=== PATIENT | male | born 1935 | race Caucasian/White ===

== ENCOUNTER 2019-06-02 00:11 | Inpatient (IN) ==
--- NOTE | 2019-06-02 00:56 | ERNOTE ---
Abdominal HPI - General Chief Complaint: Abdominal Pain Time Seen by Provider: 06/02/19 00:45 Source: patient Exam Limitations: no limitations - Immun/Allergies/Home Medications Immunizatons: IMMUNIZATION HX Immunizations Up to Date Yes History of Influenza Vaccine No Hx Pneumococcal Vaccination No Allergies/Adverse Reactions: Allergies Influenza Virus Vaccines Adverse Reaction (Unknown, Verified 03/14/19 23:58) "Deadly Sick" Home Medications: HOME MEDICATIONS Aspirin [Aspir-Low] 81 mg PO DAILY 03/14/19 [Last Taken Unknown] Carvedilol [Coreg] 12.5 mg PO BID 03/14/19 [Last Taken Unknown] Cetirizine HCl [Zyrtec] 10 mg PO DAILY 03/14/19 [Last Taken Unknown] Ferrous Sulfate [Iron] 325 mg PO DAILY 03/14/19 [Last Taken Unknown] Furosemide [Lasix] 40 mg PO BID 03/14/19 [Last Taken Unknown] Gabapentin 300 mg PO HS 03/14/19 [Last Taken Unknown] Lisinopril [Prinivil] 5 mg PO DAILY 03/14/19 [Last Taken Unknown] Meclizine HCl 25 mg PO TID PRN 03/14/19 [Last Taken Unknown] Montelukast Sodium [Singulair] 10 mg PO HS 03/14/19 [Last Taken Unknown] Pantoprazole Sodium [Protonix] 40 mg PO BID 03/14/19 [Last Taken Unknown] Sennosides/Docusate Sodium [Senna Plus 8.6-50 mg Tablet] 1 ea PO BID 03/14/19 [Last Taken Unknown] Simvastatin 40 mg PO DAILY 03/14/19 [Last Taken Unknown] Tamsulosin HCl 0.4 mg PO HS 03/14/19 [Last Taken Unknown] Warfarin Sodium 6 mg PO HS 03/14/19 [Last Taken Unknown] predniSONE [Prednisone] 2.5 mg PO DAILY 03/14/19 [Last Taken Unknown] Azithromycin [Zithromax] 250 mg PO DAILY #4 tab 05/01/19 [Last Taken Unknown] Cefdinir 300 mg PO BID #18 cap 05/01/19 [Last Taken Unknown] Furosemide [Lasix] 80 mg PO BID PRN 06/02/19 [Last Taken Unknown] Sennosides [Senna] 8.6 mg PO BID 06/02/19 [Last Taken Unknown] - History of Present Illness Narrative: Patient states he fell yesterday scraped his leg on a cabinet. He went to his PCP who dressed it but today it is continuing to bleed. He states he has been fatigued and having black stools lately. Timing: getting worse Quality: moderate Review of Systems - Review of Systems Constitutional: Present: See HPI - COPD, fatigue. Absent: recent illness, fever, chills Respiratory: Present: shortness of breath Cardiology: Absent: chest pain Gastrointestinal/Abdominal: Present: other - dark stools. . Absent: nausea, vomiting Genitourinary: Absent: dysuria Skin: Absent: rash Neurological: Present: dizziness/light-headedness Endocrine: Absent: excessive sweating Medical History (Last Reviewed 06/02/19 @ 00:51 by Andrez Beebe DO) Allergies Anemia Atrial fibrillation BPH (benign prostatic hyperplasia) CHF (congestive heart failure) Diabetes mellitus, type 2 Hyperlipidemia Hypertension Neuropathy Surgical History: Surgical History (Last Reviewed 06/02/19 @ 00:51 by Andrez Beebe DO) H/O aortic valve replacement History of bilateral knee replacement History of tonsillectomy and adenoidectomy Hx of heart artery stent Social History: (Last Reviewed 06/02/19 @ 00:51 by Andrez Beebe DO) Tobacco: Smokeless tobacco user: chewing tobacco Alcohol: alcohol intake: former Substance Use: substance use type: does not use Physical Exam - Physical Exam General Appearance: Present: wd/wn, alert, no apparent distress Head Exam: Present: normal inspection, no evidence of injury Neck: Present: normal inspection, nontender Respiratory: Present: no respiratory distress, no accessory muscle use, lungs clear Cardiovascular/Chest: Present: no murmur, irregularly irregular Gastrointestinal/Abdominal: Present: normal bowel sounds, nontender, nondistended, soft Extremity Exam: Present: normal except - - Large skin tear left lower leg Neurological Exam: Present: alert, oriented, normal mood/affect, no motor/sensory deficits Skin Exam: Present: other - Left lower leg has a large skin tear approximately 8 x 12 cm. There is Vaseline dressing over the lower two thirds there is some recent bleeding/ fresh clots but no active bleeding. Progress - Results and Orders Patient's Lab Results:: I have reviewed the patient's lab results. Results and Orders: Laboratory Tests 06/02/19 06/02/19 06/02/19 01:13 01:13 01:13 WBC 10.3 Hgb 6.5 L* D Hct 20.2 L* D Plt Count 141 L Neutrophils % 76.0 H PT Greater than 100.0 H INR (Anticoag Therapy) Greater than 9.80 H* Sodium 142 Potassium 3.8 D Chloride 106 Carbon Dioxide 25.9 BUN 65 H D Creatinine 2.14 H D Random Glucose 188 H Calcium 8.0 Total Bilirubin 0.3 AST 20 ALT 9 L Alkaline Phosphatase 61 Total Protein 6.1 L Albumin 2.8 L Amylase 55 Lipase 138 Stool Occult Blood 06/02/19 01:51 WBC Hgb Hct Plt Count Neutrophils % PT INR (Anticoag Therapy) Sodium Potassium Chloride Carbon Dioxide BUN Creatinine Random Glucose Calcium Total Bilirubin AST ALT Alkaline Phosphatase Total Protein Albumin Amylase Lipase Stool Occult Blood Positive H - Vital Signs Patient's Vital Signs:: I have reviewed the patient's vital signs. Vital Signs: Vital Signs 06/02/19 00:17 Temperature 36.6 C Pulse Rate 105 H Respiratory Rate 22 H Blood Pressure 122/45 O2 Sat by Pulse Oximetry 100 - X-Ray X-Ray #1 X-Ray: abdomen Interpretation: Interp. by mt X-ray Comments: Specific bowel gas pattern. No free air, no air-fluid levels, no evidence of obstruction. - CT/Ultrasound CT/Ultrasound Narrative: CT abdomen pelvis without IV contrast. 1. Changes of fatty metamorphosis of the liver. 2. Cholelithiasis with multiple small gallstones noted. No prominent gallbladder wall thickening observed. 3. Small hiatal hernia noted. 4. 16 mm left adrenal gland nodule noted. 5. Prominent vascular calcium in the abdominal aorta, renal arteries and superior mesenteric artery. No aneurysm noted. 6. Prominent descending and sigmoid colon diverticulosis without definite diverticulitis. 7. Distended urinary bladder with bladder diverticuli noted. The prostate gland is enlarged measuring 47 x 57 mm. - Progress/Reassessment Chief Complaint: Abdominal Pain Progress Note-Subjective: 06/02/19 05:[address] Caro she agrees with vitamin K and packed red blood cell transfusion and admission. Departure Clinical Impression: Supratherapeutic INR GI bleed Qualifiers: GI bleed type/associated pathology: melena Qualified Code(s): K92.1 - Melena - Departure Disposition: Still a patient Condition: Fair
[2019-06-02 01:24] LABS: Mean Cell Volume 94.8 fl (78-100); Mean Corpuscular Hemoglobin 30.5 pg (27-31); Mean Corpuscular Hgb Conc 32.2 g/dl (32-36); Mean Platelet Volume 11.1 fl (8-11.3); Neutrophil # 7.8 K/mm3 (1.3-6.0); Platelet Count 141 K/mm3 (150-450); Red Blood Count 2.13 M/mm3 (4.7-6.0); Red Cell Distribution Width 16.9 % (11.5-14.0); White Blood Count 10.3 K/mm3 (4.0-10.5)
[2019-06-02 01:30] LABS: Hematocrit 20.2 % (42.0-52.0); Hemoglobin 6.5 gm/dL (13.5-18.0)
[2019-06-02 01:33] LABS: Albumin * 2.8 gm/dl (3.4-5.0); Anion Gap 13.9 mmol/L (6.8-13.8); BUN/Creatinine Ratio 30.4 (9.0-21.6); Bilirubin, Total 0.3 mg/dL (0.0-1.1); Ca. Corrected For Albumin 8.6 mg/dL (8.4-10.2); Carbon Dioxide 25.9 mmol/L (24-32.6); Potassium 3.8 mmol/L (3.4-4.6); Total Protein 6.1 gm/dL (6.2-8.2)
[2019-06-02 02:04] LABS: INR Greater than 9.80 INR (0.92-1.08)
[2019-06-02] MEDS ORDERED: DIATRIZOATE MEGLUMINE, SODIUM 30 ML BTL PO ONE (02:39)
[2019-06-02] MEDS ORDERED: FUROSEMIDE 10 MG/ML VIAL IV ONE (03:40)
[2019-06-02] MEDS ORDERED: ACETAMINOPHEN 325 MG TABLET PO ONE (03:40)
[2019-06-02] MEDS ORDERED: diphenhydrAMINE HCL 50 MG/ML VIAL IV ONE (03:40)
[2019-06-02] MEDS ORDERED: ONDANSETRON HCL/PF 2 MG/ML VIAL IV ONE (03:55)
[2019-06-02] MEDS ORDERED: ACETAMINOPHEN 325 MG TABLET ONE (04:58)
[2019-06-02] MEDS ORDERED: diphenhydrAMINE HCL 50 MG/ML VIAL ONE (04:59)
[2019-06-02] MEDS ORDERED: PHYTONADIONE (VIT K1) 10 MG/ML AMPUL IV ONE (05:36)
[2019-06-02] MEDS ORDERED: PHYTONADIONE (VIT K1) 10 MG/ML AMPUL SC ONE (05:50)
[2019-06-02] MEDS ORDERED: PANTOPRAZOLE SODIUM 80 MG in NORMAL SALINE 100 ML IV ONE (06:06)
[2019-06-02] MEDS ORDERED: FUROSEMIDE 10 MG/ML VIAL ONE (08:31)
[2019-06-02] MEDS: PANTOPRAZOLE SODIUM 40 MG in NORMAL SALINE 100 ML IV SCH ×4 (08:40→23:26)
[2019-06-02] MEDS ORDERED: NORMAL SALINE 1,000 ML IV PRN (08:40)
[2019-06-02] MEDS: SUCRALFATE 1 G TABLET PO SCH ×2 (09:14→20:05)
--- NOTE | 2019-06-02 10:39 | HP ---
Chief Complaint - Chief Complaint Date of Service: 06/02/19 Time of Service: 08:00 Chief Complaint: Upper Gi Bleed History of Present Illness: 84 year old M with PMHX of CHF, A-Fib, HLD, HTN and IDDM Type II presents with SOB and Fatigue for a couple of days. Also c/o he fell and scraped his leg and would not stop bleeding. Evaluate by PCP and dressing applied and blood is seeping through. Also noticed dark tarry stools for a couple of days. Denies CP. Denies any other areas of acute bleed. No history of EGD or Colonoscopy. PCP: Mahad On arrival to ER, he was hemodynamicallly stable. Labs concerning for H/H of 6.5/20.2 and INR > 9. Patient is non compliant on coumadin Admitted to Med/Surg for Upper GI bleed due to supratherapeutic INR. General Surgery consulted. Medical History (Last Reviewed 06/02/19 @ 08:06 by Nasreen Hill RN) Allergies Anemia Atrial fibrillation BPH (benign prostatic hyperplasia) CHF (congestive heart failure) Diabetes mellitus, type 2 Hyperlipidemia Hypertension Neuropathy Surgical History: Surgical History (Last Reviewed 06/02/19 @ 08:06 by Nasreen Hill RN) H/O aortic valve replacement History of bilateral knee replacement History of tonsillectomy and adenoidectomy Hx of heart artery stent Family History: Family History (Last Updated 06/02/19 @ 08:17 by Nasreen Hill RN) Other No pertinent family history Social History: (Last Reviewed 06/02/19 @ 08:06 by Nasreen Hill RN) Tobacco: Smokeless tobacco user: chewing tobacco Alcohol: alcohol intake: former Substance Use: substance use type: does not use Review Of Systems (GEN) - Review of Systems Generalized/Overall Review: Present: Weakness, Fatigue. Absent: Chills, Fever EENTM: Present: No Symptoms Reported Respiratory: Present: Shortness of Breath. Absent: Cough, Orthopnea, Stridor, Wheezing Cardiac: Absent: Chest Pain, Edema, Palpitations, Syncope Abdominal: Present: Abdominal Pain, Melena. Absent: Nausea, Vomiting Genitourinary: Present: No Symptoms Reported Musculoskeletal: Present: No Symptoms Reported Neurological: Present: Weakness Skin: Present: Bruising - left lower eg Endocrine: Present: No Symptoms Reported Immunizations: IMMUNIZATION HX Immunizations Up to Date Yes History of Influenza Vaccine No Hx Pneumococcal Vaccination No Allergies/Adverse Reactions: Allergies Allergy/AdvReac Type Severity Reaction Status Date / Time Influenza Virus Vaccines AdvReac Unknown "Deadly Verified 03/14/19 23:58 Sick" Home Medications: HOME MEDICATIONS Aspirin [Aspir-Low] 81 mg PO DAILY 03/14/19 [Last Taken Unknown] Carvedilol [Coreg] 12.5 mg PO BIDAC 03/14/19 [Last Taken Unknown] Cetirizine HCl [Zyrtec] 10 mg PO DAILY 03/14/19 [Last Taken Unknown] Furosemide [Lasix] 40 mg PO 0900,1200 03/14/19 [Last Taken Unknown] Gabapentin 300 mg PO HS 03/14/19 [Last Taken Unknown] Lisinopril [Prinivil] 5 mg PO DAILY 03/14/19 [Last Taken Unknown] Meclizine HCl 25 mg PO TID PRN 03/14/19 [Last Taken Unknown] Montelukast Sodium [Singulair] 10 mg PO HS 03/14/19 [Last Taken Unknown] Pantoprazole Sodium [Protonix] 40 mg PO Q12H 03/14/19 [Last Taken Unknown] Simvastatin 40 mg PO DAILY 03/14/19 [Last Taken Unknown] Tamsulosin HCl 0.4 mg PO HS 03/14/19 [Last Taken Unknown] Warfarin Sodium 6 mg PO HS 03/14/19 [Last Taken Unknown] predniSONE [Prednisone] 2.5 mg PO DAILY 03/14/19 [Last Taken Unknown] Albuterol Sulfate [Proair Respiclick] 2 puff INHALATION Q6H PRN 06/02/19 [Last Taken Unknown] Arformoterol Tartrate [Brovana] 15 mcg INHALATION BID 06/02/19 [Last Taken Unknown] Budesonide [Pulmicort Respules] 2 ml INHALATION BID 06/02/19 [Last Taken Unknown] Cholecalciferol [Vitamin D] 50,000 unit PO Q7D 06/02/19 [Last Taken Unknown] Ferrous Sulfate [Ferosul] 220 mg PO DAILY 06/02/19 [Last Taken Unknown] Formoterol Fumarate [Perforomist] 20 mcg INHALATION BID 06/02/19 [Last Taken U nknown] Furosemide [Lasix] 80 mg PO BID PRN 06/02/19 [Last Taken Unknown] Gentamicin Sulfate [Gentamicin 0.3% Ophthalmic Solution] 1 drp EACHEYE TID 06/02/19 [Last Taken Unknown] Insulin Glargine,Hum.rec.anlog [Lantus Solostar] 40 unit SQ BID 06/02/19 [Last Taken Unknown] Ipratropium/Albuterol Sulfate [Iprat-Albut 0.5-3(2.5) mg/3 ml] 3 ml INHALATION Q4H 06/02/19 [Last Taken Unknown] Lidocaine [Lidoderm 5%] 1 patch TOPICAL DAILY 06/02/19 [Last Taken Unknown] Mupirocin [Bactroban] 1 appl TOPICAL DAILY 06/02/19 [Last Taken Unknown] Polyethylene Glycol 3350 [Miralax] 17 gm PO DAILY 06/02/19 [Last Taken Unknown] Sennosides [Senna] 8.6 mg PO BID 06/02/19 [Last Taken Unknown] Sennosides/Docusate Sodium [Senna-Docusate Sodium Tablet] 1 ea PO BID 06/02/19 [Last Taken Unknown] Exam - Exam Vital Signs: Vital Signs - Last Taken Temp 36.8 C 06/02/19 09:45 Pulse 98 06/02/19 09:45 Resp 20 06/02/19 09:45 BP 118/38 06/02/19 09:45 Pulse Ox 100 06/02/19 09:45 Constitutional: Present: Alert, Oriented x3, Cooperative, No distress ENT Exam: Present: hard of hearing Eye Exam: bilateral eye: normal inspection, PERRL, EOMI Neck: Present: non-tender, full range of motion, supple Back Exam: Present: normal inspection Respiratory: Present: chest non-tender, lungs clear, normal breath sounds, no respiratory distress, no accessory muscle use, No rales, No wheezing Cardiovascular/Chest: Present: normal peripheral pulses, regular rate, rhythm, no chest tenderness, no edema, no gallop, no JVD, systolic murmur Peripheral Pulses: dorsalis-pedis (R): 2+, dorsalis-pedis (L): 2+, radial (R): 2+, radial (L): 2+ Abdomen: Present: Normal bowel sounds, soft, nontender, other - hepatomegaly suspected, distended /Rectal: Present: Exam deferred Extremity: Present: normal range of motion, non-tender, normal inspection, no pedal edema - left leg due to opensuperficial wound, no calf tenderness, normal capillary refill, leg pain Skin Exam: Present: normal color, warm/dry Lymphatic: Present: no adenopathy Neurologic: Present: alert, oriented x 3 Appearance: Present: appropriate appearance, impaired recent memory - suspect Eye contact: Present: cooperative Thoughts: Present: other - unable to evaluate Diagnostic Studies: Abnormal Lab Results 06/02/19 06/02/19 06/02/19 Range/Units 01:13 01:13 01:13 RBC 2.13 L (4.7-6.0) M/mm3 Hgb 6.5 L* D (13.5-18.0) gm/dL Hct 20.2 L* D (42.0-52.0) % RDW 16.9 H (11.5-14.0) % Plt Count 141 L (150-450) K/mm3 Immature Gran % (Auto) 0.60 H (0.001-0.429) % Immature Gran # (Auto) 0.06 H (0.000-0.0310) K/mm3 Neutrophils % 76.0 H (42-75.0) % Lymphocytes % 14.9 L (20-51) % Neutrophils # 7.8 H (1.3-6.0) K/mm3 PT Greater than 100.0 H (9.1-10.7) Seconds INR (Anticoag Therapy) Greater than 9.80 H* (0.92-1.08) INR Plasma Sodium 143 H (130-142) mmol/L Anion Gap 13.9 H (6.8-13.8) mmol/L BUN 65 H D (6-23) mg/dL Creatinine 2.14 H D (0.4-1.4) mg/dL Est GFR (Non-Af Amer) 31 L D (60-130) mL/min BUN/Creatinine Ratio 30.4 H (9.0-21.6) Random Glucose 188 H (70-110) mg/dL ALT 9 L (19-67) U/L Total Protein 6.1 L (6.2-8.2) gm/dL Albumin 2.8 L (3.4-5.0) gm/dl Stool Occult Blood Crossmatch 06/02/19 06/02/19 Range/Units 01:13 01:51 RBC (4.7-6.0) M/mm3 Hgb (13.5-18.0) gm/dL Hct (42.0-52.0) % RDW (11.5-14.0) % Plt Count (150-450) K/mm3 Immature Gran % (Auto) (0.001-0.429) % Immature Gran # (Auto) (0.000-0.0310) K/mm3 Neutrophils % (42-75.0) % Lymphocytes % (20-51) % Neutrophils # (1.3-6.0) K/mm3 PT (9.1-10.7) Seconds INR (Anticoag Therapy) (0.92-1.08) INR Plasma Sodium (130-142) mmol/L Anion Gap (6.8-13.8) mmol/L BUN (6-23) mg/dL Creatinine (0.4-1.4) mg/dL Est GFR (Non-Af Amer) (60-130) mL/min BUN/Creatinine Ratio (9.0-21.6) Random Glucose (70-110) mg/dL ALT (19-67) U/L Total Protein (6.2-8.2) gm/dL Albumin (3.4-5.0) gm/dl Stool Occult Blood Positive H Crossmatch See Detail Laboratory Results WBC 10.3 K/mm3 (4.0-10.5) 06/02/19 01:13 RBC 2.13 M/mm3 (4.7-6.0) L 06/02/19 01:13 Hgb 6.5 gm/dL (13.5-18.0) L* D 06/02/19 01:13 Hct 20.2 % (42.0-52.0) L* D 06/02/19 01:13 MCV 94.8 fl (78-100) 06/02/19 01:13 MCH 30.5 pg (27-31) 06/02/19 01:13 MCHC 32.2 g/dl (32-36) 06/02/19 01:13 RDW 16.9 % (11.5-14.0) H 06/02/19 01:13 Plt Count 141 K/mm3 (150-450) L 06/02/19 01:13 MPV 11.1 fl (8-11.3) 06/02/19 01:13 Immature Gran % (Auto) 0.60 % (0.001-0.429) H 06/02/19 01:13 Immature Gran # (Auto) 0.06 K/mm3 (0.000-0.0310) H 06/02/19 01:13 Neutrophils % 76.0 % (42-75.0) H 06/02/19 01:13 Lymphocytes % 14.9 % (20-51) L 06/02/19 01:13 Monocytes % 7.6 % (0.0-9) 06/02/19 01:13 Eosinophils % 0.5 % (0.0-3.0) 06/02/19 01:13 Basophils % 0.4 % (0.0-1.0) 06/02/19 01:13 Nucleated RBC % 0.0 k/mm3 (0-1) 06/02/19 01:13 Neutrophils # 7.8 K/mm3 (1.3-6.0) H 06/02/19 01:13 Lymphocytes # 1.53 k/mm3 (1.5-3.5) 06/02/19 01:13 Monocytes # 0.8 k/mm3 (0.0-1.0) 06/02/19 01:13 Eosinophils # 0.1 k/mm3 (0.0-0.7) 06/02/19 01:13 Absolute Basophils 0.0 k/mm3 (0.0-0.1) 06/02/19 01:13 PT Greater than 100.0 Seconds (9.1-10.7) H 06/02/19 01:13 INR (Anticoag Therapy) Greater than 9.80 INR (0.92-1.08) H* 06/02/19 01:13 Sodium 142 mmol/L (132-142) 06/02/19 01:13 Plasma Sodium 143 mmol/L (130-142) H 06/02/19 01:13 Potassium 3.8 mmol/L (3.4-4.6) D 06/02/19 01:13 Chloride 106 mmol/L (97-106) 06/02/19 01:13 Carbon Dioxide 25.9 mmol/L (24-32.6) 06/02/19 01:13 Anion Gap 13.9 mmol/L (6.8-13.8) H 06/02/19 01:13 BUN 65 mg/dL (6-23) H D 06/02/19 01:13 Creatinine 2.14 mg/dL (0.4-1.4) H D 06/02/19 01:13 Est GFR (Non-Af Amer) 31 mL/min (60-130) L D 06/02/19 01:13 BUN/Creatinine Ratio 30.4 (9.0-21.6) H 06/02/19 01:13 Random Glucose 188 mg/dL (70-110) H 06/02/19 01:13 Calcium 8.0 mg/dL (7.9-10.9) 06/02/19 01:13 Calcium Adj for Albumin 8.6 mg/dL (8.4-10.2) 06/02/19 01:13 Total Bilirubin 0.3 mg/dL (0.0-1.1) 06/02/19 01:13 AST 20 U/L (0-48) 06/02/19 01:13 ALT 9 U/L (19-67) L 06/02/19 01:13 Alkaline Phosphatase 61 U/L (50-170) 06/02/19 01:13 Total Protein 6.1 gm/dL (6.2-8.2) L 06/02/19 01:13 Albumin 2.8 gm/dl (3.4-5.0) L 06/02/19 01:13 Amylase 55 U/L (25-115) 06/02/19 01:13 Lipase 138 U/L (73-393) 06/02/19 01:13 Stool Occult Blood Positive H 06/02/19 01:51 Blood Type A Negative 06/02/19 01:13 Antibody Screen Negative 06/02/19 01:13 Crossmatch See Detail 06/02/19 01:13 Assessment/Plan - Narrative Narrative: Assessment/Plan 84 year old M admittted for symptomatic anemia due to Upper GI Bleed and Supratherapeutic INR Symptomatic Anemia due to Upper GI Bleed - TYPE and Screen - Transfuse will hgb goal > 9 and asymptomatic - Lasix 10 mg IV to be administered between each dose - NPO - Gentle hydration due to hx of CHF - Protonix 80 MG IV followed by 40 mg IV daily - Carafate 1 gm BID - General surgery consulted:Dr. Goldberg, appreciate recommednations. Supratherapeutic INR - Vit K IM 5 MG and 5MG SC Administered on arrival - Repeat PT/INR > 9 - Continue to monitor - Lolly AngelMD on board, appreciate recommendations Atrial fibrillation with RVR - Appreciated on EKG - Currently in NSR and hemodynamically stable - Cardiac Panel, BNP and EKG pending Ulcer of left lower extremity, limited to breakdown of skin - Wound Center Consulted. Appreciate recommendations - Wound care as per their recommendations and RN's recommendations - Tight glycemic control once patient resumes diet - Will obtain A1C to evaluate severity of his diabetes FEN: NPO, NS @ 75 ML/HR DVT PPX: SCDS CODE STATUS: FULL CODE DISPOSITION: - Continue to transfuse till target hgb goal - Monitor for transfusion reactions and pulmonary edema - f/u on cardiac work up - f/u on recommendations from General Surgery and Wound Center - Auto Detailer onboard to assist with medical necessities upon discharge - Needs patient education on Coumadin - Assessment/Plan (1) GI bleed Problem: Acute Qualifiers: GI bleed type/associated pathology: melena Qualified Code(s): K92.1 - Melena (2) Supratherapeutic INR Problem: Acute (3) Symptomatic anemia Problem: Acute (4) Atrial fibrillation with RVR Problem: Acute (5) Ulcer of left lower extremity, limited to breakdown of skin Problem: Acute
[2019-06-02 11:06] LABS: Urine Bilirubin Negative (NEGATIVE); Urine Blood Negative /ul (NEGATIVE); Urine Ketone Negative (NEGATIVE); Urine Nitrite Negative (NEGATIVE); Urine Protein Negative (NEGATIVE); Urine Specific Gravity 1.015 SP.GR. (1.005-1.030); Urine Urobilinogen Normal (NORMAL)
[2019-06-02 11:20] LABS: Urine Amorphous Sediment Few - 1+ (NONE-FEW); Urine Appearance Clear (CLEAR); Urine Bacteria None Seen; Urine Color Yellow; Urine RBC None Seen /hpf (0-5); Urine WBC 0-5 /hpf (0-5)
[2019-06-02 13:16] LABS: Mean Cell Volume 91.4 fl (78-100); Mean Corpuscular Hemoglobin 30.4 pg (27-31); Mean Corpuscular Hgb Conc 33.2 g/dl (32-36); Mean Platelet Volume 11.9 fl (8-11.3); Neutrophil # 7.6 K/mm3 (1.3-6.0); Neutrophil % 72.7 % (42-75.0); Platelet Count 135 K/mm3 (150-450); Red Blood Count 2.57 M/mm3 (4.7-6.0); Red Cell Distribution Width 16.7 % (11.5-14.0); White Blood Count 10.4 K/mm3 (4.0-10.5)
[2019-06-02 13:19] LABS: Hemoglobin 7.8 gm/dL (13.5-18.0)
[2019-06-02 13:20] LABS: Hematocrit 23.5 % (42.0-52.0)
[2019-06-02 13:30] LABS: Albumin * 2.6 gm/dl (3.4-5.0); Anion Gap 13.5 mmol/L (6.8-13.8); BUN/Creatinine Ratio 37.6 (9.0-21.6); Bilirubin, Total 0.4 mg/dL (0.0-1.1); Ca. Corrected For Albumin 8.6 mg/dL (8.4-10.2); Calcium * 7.8 mg/dL (7.9-10.9); Carbon Dioxide 26.5 mmol/L (24-32.6); Total Protein 5.6 gm/dL (6.2-8.2)
[2019-06-02 13:46] LABS: INR Greater than 9.80 INR (0.92-1.08); Partial Thrombolplastin Time 52.3 Seconds (24-32)
[2019-06-02] MEDS ORDERED: ACETAMINOPHEN 325 MG TABLET PO PRN (13:50)
[2019-06-02] MEDS ORDERED: FUROSEMIDE 10 MG/ML VIAL IV SCH ×2 (13:53→18:00)
[2019-06-02] MEDS ORDERED: diphenhydrAMINE HCL 50 MG/ML VIAL IV SCH (13:53)
[2019-06-02 14:25] LABS: CKMB 1.5 ng/mL (0.0-9.0); Troponin I 0.026 ng/mL (0.00-0.10)
--- NOTE | 2019-06-02 15:55 | CONS ---
[facility] - General Date of Service: 06/02/19 Source: patient Exam Limitations: other - Patient is hard of hearing - History of Present Illness Timing/Duration: unsure Allergies/Adverse Reactions: Allergies Influenza Virus Vaccines Adverse Reaction (Unknown, Verified 03/14/19 23:58) "Deadly Sick" Home Medications: Home Medications Medication Instructions Recorded Last Taken Aspirin [Aspir-Low] 81 mg PO DAILY 03/14/19 Unknown Carvedilol [Coreg] 12.5 mg PO BIDAC 03/14/19 Unknown Cetirizine HCl [Zyrtec] 10 mg PO DAILY 03/14/19 Unknown Furosemide [Lasix] 40 mg PO 0900,1200 03/14/19 Unknown Gabapentin 300 mg PO HS 03/14/19 Unknown Lisinopril [Prinivil] 5 mg PO DAILY 03/14/19 Unknown Meclizine HCl 25 mg PO TID PRN 03/14/19 Unknown Montelukast Sodium [Singulair] 10 mg PO HS 03/14/19 Unknown Pantoprazole Sodium [Protonix] 40 mg PO Q12H 03/14/19 Unknown Simvastatin 40 mg PO DAILY 03/14/19 Unknown Tamsulosin HCl 0.4 mg PO HS 03/14/19 Unknown Warfarin Sodium 6 mg PO HS 03/14/19 Unknown predniSONE [Prednisone] 2.5 mg PO DAILY 03/14/19 Unknown Albuterol Sulfate [Proair 2 puff INHALATION Q6H PRN 06/02/19 Unknown Respiclick] Arformoterol Tartrate [Brovana] 15 mcg INHALATION BID 06/02/19 Unknown Budesonide [Pulmicort Respules] 2 ml INHALATION BID 06/02/19 Unknown Cholecalciferol [Vitamin D] 50,000 unit PO Q7D 06/02/19 Unknown Ferrous Sulfate [Ferosul] 220 mg PO DAILY 06/02/19 Unknown Formoterol Fumarate [Perforomist] 20 mcg INHALATION BID 06/02/19 Unknown Furosemide [Lasix] 80 mg PO BID PRN 06/02/19 Unknown Gentamicin Sulfate [Gentamicin 1 drp EACHEYE TID 06/02/19 Unknown 0.3% Ophthalmic Solution] Insulin Glargine,Hum.rec.anlog 40 unit SQ BID 06/02/19 Unknown [Lantus Solostar] Ipratropium/Albuterol Sulfate 3 ml INHALATION Q4H 06/02/19 Unknown [Iprat-Albut 0.5-3(2.5) mg/3 ml] Lidocaine [Lidoderm 5%] 1 patch TOPICAL DAILY 06/02/19 Unknown Mupirocin [Bactroban] 1 appl TOPICAL DAILY 06/02/19 Unknown Polyethylene Glycol 3350 [Miralax] 17 gm PO DAILY 06/02/19 Unknown Sennosides [Senna] 8.6 mg PO BID 06/02/19 Unknown Sennosides/Docusate Sodium 1 ea PO BID 06/02/19 Unknown [Senna-Docusate Sodium Tablet] Procedures Endoscopic polypectomy of large intestine (01/13/08) Medications - Medications Current Medications: Current Medications Pantoprazole Sodium 40 mg/ (Sodium Chloride) 100 mls @ 20 mls/hr IV Q5H [facility] Stop: 06/03/19 07:14 Last Admin: 06/02/19 13:42 Dose: 20 mls/hr Documented by: Sodium Chloride (Sodium Chloride 0.9%) 1,000 mls @ 75 mls/hr IV .[id number] PRN PRN Reason: HYDRATION Stop: 07/02/19 08:41 Last Admin: 06/02/19 11:56 Dose: 75 mls/hr Documented by: Sucralfate (Carafate) 1 g PO BID [facility] Stop: 07/02/19 09:01 Last Admin: 06/02/19 09:14 Dose: 1 g Documented by: Review of Systems - Review of Systems Generalized/Overall Review: Absent: Chills, Fever EENTM: Absent: Nose Congestion Respiratory: Absent: Cough Cardiac: Present: Edema. Absent: Chest Pain Abdominal: Absent: Nausea Musculoskeletal: Absent: Joint Pain Skin: Present: Lesions Physical Examination - Exam Narrative: Patient is an 84-year-old male, recently admitted to the hospital regarding a GI bleed. He states he also fell yesterday scraping his leg. History is difficult, as the patient is hard of hearing and does not answer questions. Nursing notes state that he was recently admitted to [place], in January 2019, for similar GI bleed, and he was evaluated with his primary care provider, Dr. Tobin, recently regarding the wound. The patient let me to believe that the ulcer had been there for some time, and not as a result of her recent fall. However as stated above, he is hard of hearing and the conversation was difficult. His medical history includes anemia, BPH, congestive heart failure, diabetes, hyperlipidemia, hypertension and neuropathy. Vital Signs: Vital Signs - Last Taken Temp 36.8 C 06/02/19 14:22 Pulse 99 06/02/19 14:22 Resp 20 06/02/19 14:22 BP 133/35 06/02/19 14:22 Pulse Ox 100 06/02/19 14:22 O2 Oxygen Delivery Method Nasal Cannula Constitutional: Present: Alert, Cooperative, Obese ENT Exam: Present: hard of hearing Extremity: Present: leg pain, pedal edema Skin Exam: Present: warm/dry, other - The ulcer on the left lateral lower leg measures approximately 10 cm x 6 cm x 0.1 cm. Small amount of serous sanguinous drainage is noted. No erythema. Large amount of red granulation tissue is present. No necrosis. There is an area on the right medial ankle that is reddened, with no open wound or drainage noted. Eye contact: Present: normal speech - Results and Findings: Lab/Microbiology results last 24 hrs: Abnormal/Pending Laboratory Last 24 HRS 06/02/19 06/02/19 06/02/19 13:10 13:10 13:10 RBC 2.57 L Hgb 7.8 L* Hct 23.5 L* RDW 16.7 H Plt Count 135 L MPV 11.9 H Immature Gran % (Auto) 0.70 H Immature Gran # (Auto) 0.07 H Neutrophils % Lymphocytes % 15.8 L Monocytes % 9.8 H Neutrophils # 7.6 H PT Greater than 100.0 H INR (Anticoag Therapy) Greater than 9.80 H* PTT ([place]) 52.3 H D Sodium 144 H Plasma Sodium 145 H Chloride 108 H Anion Gap BUN 68 H Creatinine 1.81 H Est GFR (Non-Af Amer) 38 L D BUN/Creatinine Ratio 37.6 H Random Glucose 161 H Calcium 7.8 L ALT 8 L Alkaline Phosphatase 49 L B-Natriuretic Peptide Total Protein 5.6 L Albumin 2.6 L Stool Occult Blood Crossmatch 06/02/19 06/02/19 06/02/19 12:50 01:51 01:13 RBC Hgb Hct RDW Plt Count MPV Immature Gran % (Auto) Immature Gran # (Auto) Neutrophils % Lymphocytes % Monocytes % Neutrophils # PT INR (Anticoag Therapy) PTT ([place]) Sodium Plasma Sodium Chloride Anion Gap BUN Creatinine Est GFR (Non-Af Amer) BUN/Creatinine Ratio Random Glucose Calcium ALT Alkaline Phosphatase B-Natriuretic Peptide 1320 H Total Protein Albumin Stool Occult Blood Positive H Crossmatch See Detail 06/02/19 06/02/19 06/02/19 01:13 01:13 01:13 RBC 2.13 L Hgb 6.5 L* D Hct 20.2 L* D RDW 16.9 H Plt Count 141 L MPV Immature Gran % (Auto) 0.60 H Immature Gran # (Auto) 0.06 H Neutrophils % 76.0 H Lymphocytes % 14.9 L Monocytes % Neutrophils # 7.8 H PT Greater than 100.0 H INR (Anticoag Therapy) Greater than 9.80 H* PTT (Manny) Sodium Plasma Sodium 143 H Chloride Anion Gap 13.9 H BUN 65 H D Creatinine 2.14 H D Est GFR (Non-Af Amer) 31 L D BUN/Creatinine Ratio 30.4 H Random Glucose 188 H Calcium ALT 9 L Alkaline Phosphatase B-Natriuretic Peptide Total Protein 6.1 L Albumin 2.8 L Stool Occult Blood Crossmatch - Assessments/Findings (1) Ulcer of left lower extremity, limited to breakdown of skin Diagnosis(s): Recommend using Jo, to the open area on the left lower leg. This will facilitate healing, and control for bacteria. The Jo will be covered with gauze and secured with tape. The dressing will be changed every 3 days. The area will be washed thoroughly with soap and water at dressing changes. Also recommend continuing protect the right medial ankle with a Mepilex border. This will be changed daily and as needed. Continue to monitor for signs and symptoms of infection. Problem: Acute
[2019-06-02] MEDS ORDERED: ALBUTEROL SULFATE 2.5 MG/0.5 ML VIAL.NEB IH PRN ×2 (16:22→20:23)
[2019-06-02] MEDS ORDERED: GENTAMICIN SULFATE 50 DROP BTL EACHEYE SCH (17:00)
--- NOTE | 2019-06-02 17:05 | CONS ---
[facility] - General Date of Service: 06/02/19 Source: patient, RN/MD, RN notes reviewed, old records Exam Limitations: other - Patient is very hard of hearing - History of Present Illness Initial Comments: The patient apparently fell at home 2 days ago and sustained an injury to his lower leg. The area was bleeding, he felt weak so he presented to the ER. He was found to have a hemoglobin of 6.5 and a heme positive stool. His INR was greater than 9. He was admitted for further treatment. The patient is very hard of hearing and a very poor historian so information has been gleaned from his records that were faxed from Dr. Tobin's office--- he was admitted to [facility] in [place] in January with an upper GI bleed and had upper and lower endoscopy there. The upper endoscopy revealed a significant hiatal hernia with nonbleeding Man linear ulcers and he had 2 small necrotic ulcers on the lesser curvature and marked solorzano gastritis. He had severe pancolonic diverticulosis and a "diminutive" tubular adenoma in the transverse colon. Timing/Duration: getting worse, changing over time, other - Unsure by his history Severity: moderate Modifying Factors - (Worsens): Reports: movement Modifying Factors - (Improves): Reports: rest Associated Symptoms: other - He reports only occasional heartburn. He denies dysphagia. He denies abdominal pain. He states his bowels move regularly. He has noted black bowel movements Allergies/Adverse Reactions: Allergies Influenza Virus Vaccines Adverse Reaction (Unknown, Verified 03/14/19 23:58) "Deadly Sick" Home Medications: Home Medications Medication Instructions Recorded Last Taken Aspirin [Aspir-Low] 81 mg PO DAILY 03/14/19 Unknown Carvedilol [Coreg] 12.5 mg PO BIDAC 03/14/19 Unknown Cetirizine HCl [Zyrtec] 10 mg PO DAILY 03/14/19 Unknown Furosemide [Lasix] 40 mg PO 0900,1200 03/14/19 Unknown Gabapentin 300 mg PO HS 03/14/19 Unknown Lisinopril [Prinivil] 5 mg PO DAILY 03/14/19 Unknown Meclizine HCl 25 mg PO TID PRN 03/14/19 Unknown Montelukast Sodium [Singulair] 10 mg PO HS 03/14/19 Unknown Pantoprazole Sodium [Protonix] 40 mg PO Q12H 03/14/19 Unknown Simvastatin 40 mg PO DAILY 03/14/19 Unknown Tamsulosin HCl 0.4 mg PO HS 03/14/19 Unknown Warfarin Sodium 6 mg PO HS 03/14/19 Unknown predniSONE [Prednisone] 2.5 mg PO DAILY 03/14/19 Unknown Albuterol Sulfate [Proair 2 puff INHALATION Q6H PRN 06/02/19 Unknown Respiclick] Arformoterol Tartrate [Brovana] 15 mcg INHALATION BID 06/02/19 Unknown Budesonide [Pulmicort Respules] 2 ml INHALATION BID 06/02/19 Unknown Cholecalciferol [Vitamin D] 50,000 unit PO Q7D 06/02/19 Unknown Ferrous Sulfate [Ferosul] 220 mg PO DAILY 06/02/19 Unknown Formoterol Fumarate [Perforomist] 20 mcg INHALATION BID 06/02/19 Unknown Furosemide [Lasix] 80 mg PO BID PRN 06/02/19 Unknown Gentamicin Sulfate [Gentamicin 1 drp EACHEYE TID 06/02/19 Unknown 0.3% Ophthalmic Solution] Insulin Glargine,Hum.rec.anlog 40 unit SQ BID 06/02/19 Unknown [Lantus Solostar] Ipratropium/Albuterol Sulfate 3 ml INHALATION Q4H 06/02/19 Unknown [Iprat-Albut 0.5-3(2.5) mg/3 ml] Lidocaine [Lidoderm 5%] 1 patch TOPICAL DAILY 06/02/19 Unknown Mupirocin [Bactroban] 1 appl TOPICAL DAILY 06/02/19 Unknown Polyethylene Glycol 3350 [Miralax] 17 gm PO DAILY 06/02/19 Unknown Sennosides [Senna] 8.6 mg PO BID 06/02/19 Unknown Sennosides/Docusate Sodium 1 ea PO BID 06/02/19 Unknown [Senna-Docusate Sodium Tablet] Procedures Endoscopic polypectomy of large intestine (01/13/08) Medications - Medications Current Medications: Current Medications Pantoprazole Sodium 40 mg/ (Sodium Chloride) 100 mls @ 20 mls/hr IV Q5H [facility] Stop: 06/03/19 07:14 Last Admin: 06/02/19 13:42 Dose: 20 mls/hr Documented by: Sodium Chloride (Sodium Chloride 0.9%) 1,000 mls @ 50 mls/hr IV .Q20H PRN PRN Reason: HYDRATION Stop: 07/02/19 08:41 Last Infusion: 06/02/19 15:58 Dose: 0 mls/hr Documented by: Sucralfate (Carafate) 1 g PO BID [facility] Stop: 07/02/19 09:01 Last Admin: 06/02/19 09:14 Dose: 1 g Documented by: Review of Systems - Review of Systems Narrative: System review is limited due to very poor hearing and self-admitted bad memory Generalized/Overall Review: Present: Weakness. Absent: Chills, Fever EENTM: Present: No Symptoms Reported Respiratory: Present: Other - He is on chronic O2 at home. Absent: Cough Cardiac: Present: Edema. Absent: Chest Pain Abdominal: Present: Other - Only gets heartburn occasionally. No abdominal pain. Black stools recently Genitourinary: Present: No Symptoms Reported. 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 He is oriented to self and that he is in the hospital but not the date. He cannot answer questions about his hospitalization in [place] in [facility] estef[facility] "too long ago" Vital Signs: Vital Signs - Last Taken Temp 37.0 C 06/02/19 16:14 Pulse 105 H 06/02/19 16:37 Resp 20 06/02/19 16:14 BP 120/46 06/02/19 16:14 Pulse Ox 100 06/02/19 16:14 O2 Oxygen Delivery Method Nasal Cannula Constitutional: Present: Alert, Elderly, Obese ENT Exam: Present: other - Very poor hearing Neck: Present: other - Short thick neck Respiratory: Present: no respiratory distress, other - 02 Cardiovascular/Chest: Present: irregularly irregular Abdomen: Present: other - Very obese but soft and denies abdominal tenderness /Rectal: Present: Exam deferred Extremity: Present: lower extremity edema, other - Dressed wound on the left ankle Skin Exam: Present: pallor Neurologic: Present: electronics tester II-XII nml as tested, normal cerebellar test, no motor/sensory deficits, alert, other - Only oriented to self and "in hospital". Examined in bed, gait not tested Appearance: Present: disheveled, impaired remote memory Eye contact: Present: good eye contact, normal speech, other - Very hard of hearing Thoughts: Present: other - Cannot assess fully - Results and Findings: Lab/Microbiology results last 24 hrs: Abnormal/Pending Laboratory Last 24 HRS 06/02/19 06/02/19 06/02/19 13:10 13:10 13:10 RBC 2.57 L Hgb 7.8 L* Hct 23.5 L* RDW 16.7 H Plt Count 135 L MPV 11.9 H Immature Gran % (Auto) 0.70 H Immature Gran # (Auto) 0.07 H Neutrophils % Lymphocytes % 15.8 L Monocytes % 9.8 H Neutrophils # 7.6 H PT Greater than 100.0 H INR (Anticoag Therapy) Greater than 9.80 H* PTT ([place]) 52.3 H D Sodium 144 H Plasma Sodium 145 H Chloride 108 H Anion Gap BUN 68 H Creatinine 1.81 H Est GFR (Non-Af Amer) 38 L D BUN/Creatinine Ratio 37.6 H Random Glucose 161 H Calcium 7.8 L ALT 8 L Alkaline Phosphatase 49 L B-Natriuretic Peptide Total Protein 5.6 L Albumin 2.6 L Stool Occult Blood Crossmatch 06/02/19 06/02/19 06/02/19 12:50 01:51 01:13 RBC Hgb Hct RDW Plt Count MPV Immature Gran % (Auto) Immature Gran # (Auto) Neutrophils % Lymphocytes % Monocytes % Neutrophils # PT INR (Anticoag Therapy) PTT (Manny) Sodium Plasma Sodium Chloride Anion Gap BUN Creatinine Est GFR (Non-Af Amer) BUN/Creatinine Ratio Random Glucose Calcium ALT Alkaline Phosphatase B-Natriuretic Peptide 1320 H Total Protein Albumin Stool Occult Blood Positive H Crossmatch See Detail 06/02/19 06/02/19 06/02/19 01:13 01:13 01:13 RBC 2.13 L Hgb 6.5 L* D Hct 20.2 L* D RDW 16.9 H Plt Count 141 L MPV Immature Gran % (Auto) 0.60 H Immature Gran # (Auto) 0.06 H Neutrophils % 76.0 H Lymphocytes % 14.9 L Monocytes % Neutrophils # 7.8 H PT Greater than 100.0 H INR (Anticoag Therapy) Greater than 9.80 H* PTT (Manny) Sodium Plasma Sodium 143 H Chloride Anion Gap 13.9 H BUN 65 H D Creatinine 2.14 H D Est GFR (Non-Af Amer) 31 L D BUN/Creatinine Ratio 30.4 H Random Glucose 188 H Calcium ALT 9 L Alkaline Phosphatase B-Natriuretic Peptide Total Protein 6.1 L Albumin 2.8 L Stool Occult Blood Crossmatch - Assessments/Findings (1) GI bleed Diagnosis(s): The records from [place] were reviewed. The gastric biopsies were benign at that time. There is no record of H. pylori testing. The most likely source of bleeding is from the hiatal hernia or stomach aggravated by the markedly prolonged INR. He is hemodynamically stable currently. His hemoglobin was 9 in January and February. Currently with Covidien restrictions, an EGD would involve a general endotracheal anesthetic. The risk of that procedure is probably not warranted in that he had findings that would account for chronic blood loss, and so repeat exam would not likely add any new actionable information. With a colonoscopy in January and black bowel movements the likelihood of a lower GI source is low. Would recommend transfusion to a safe level. Continue treatment with twice daily PPI with addition of Carafate. If there is no record of H. pylori testing previously, a stool antigen for H. pylori could be considered. He has however apparently been on twice daily PPI. This may be an opportunity to reevaluate his need for chronic anticoagulation, the medications used, and the monitoring. Problem: Acute Qualifiers: GI bleed type/associated pathology: melena Qualified Code(s): K92.1 - Melena
[2019-06-02] MEDS: CARVEDILOL 12.5 MG TABLET PO SCH (17:39)
[2019-06-02] MEDS ORDERED: CARVEDILOL 25 MG TABLET PO ONE (17:39)
[2019-06-02] MEDS ORDERED: METHYLPREDNISOLONE SOD SUCC/PF 125 MG/2 ML VIAL IV ONE (19:00)
[2019-06-02] MEDS ORDERED: NON-FORMULARY 1 DOSE DOSE (Arformoterol Tartrate [Brovana] 15 MCG) inhalation SCH (21:00)
[2019-06-02 21:06] LABS: Hematocrit 24.8 % (42.0-52.0)
[2019-06-02 21:25] LABS: Troponin I 0.027 ng/mL (0.00-0.10)
[2019-06-03] MEDS: PANTOPRAZOLE SODIUM 40 MG in NORMAL SALINE 100 ML IV SCH (04:24)
[2019-06-03 06:36] LABS: Mean Cell Volume 91.5 fl (78-100); Mean Corpuscular Hemoglobin 29.1 pg (27-31); Mean Corpuscular Hgb Conc 31.8 g/dl (32-36); Mean Platelet Volume 11.8 fl (8-11.3); Neutrophil # 10.2 K/mm3 (1.3-6.0); Neutrophil % 92.4 % (42-75.0); Platelet Count 132 K/mm3 (150-450); Red Blood Count 2.58 M/mm3 (4.7-6.0); Red Cell Distribution Width 17.5 % (11.5-14.0)
[2019-06-03 06:52] LABS: Albumin * 2.5 gm/dl (3.4-5.0); Anion Gap 13.7 mmol/L (6.8-13.8); BUN/Creatinine Ratio 36.2 (9.0-21.6); Bilirubin, Total 0.6 mg/dL (0.0-1.1); Ca. Corrected For Albumin 8.6 mg/dL (8.4-10.2); Calcium * 7.7 mg/dL (7.9-10.9); Carbon Dioxide 25.9 mmol/L (24-32.6); Potassium 4.6 mmol/L (3.4-4.6); Total Protein 5.6 gm/dL (6.2-8.2)
[2019-06-03 06:56] LABS: Prothrombin Time (Patient) 22.1 Seconds (9.1-10.7)
[2019-06-03 06:58] LABS: INR 2.31 INR (0.92-1.08); Partial Thrombolplastin Time 32.2 Seconds (24-32)
[2019-06-03 07:06] LABS: Hematocrit 23.6 % (42.0-52.0); Hemoglobin 7.5 gm/dL (13.5-18.0)
[2019-06-03] MEDS: ALBUTEROL SULFATE/IPRATROPIUM 3 ML NEBU IH SCH ×5 (07:38→22:18)
[2019-06-03] MEDS: FORMOTEROL FUMARATE 20 MCG/2 ML VIAL IH SCH ×3 (07:38→18:11)
[2019-06-03] MEDS: BUDESONIDE 0.5 MG/2 ML VIAL.NEB IH SCH ×3 (07:38→18:11)
[2019-06-03] MEDS: CARVEDILOL 12.5 MG TABLET PO SCH ×2 (09:26→17:15)
[2019-06-03] MEDS: SUCRALFATE 1 G TABLET PO SCH ×2 (09:26→20:34)
[2019-06-03] MEDS: LIDOCAINE 1 PATCH ADH..PATCH TP SCH (09:26)
[2019-06-03] MEDS ORDERED: LEVOFLOXACIN IN DEXTROSE 5 % 750 MG/150 ML BAG IV SCH (12:30)
[2019-06-03] MEDS ORDERED: CEFEPIME HCL 2 GM in DEXTROSE 5 % IN WATER 100 ML IV SCH ×2 (12:30)
--- NOTE | 2019-06-03 12:52 | PN ---
Subjective - Date and Time Seen Date: 06/03/19 Time: 12:46 Subjective Narrative: Patient is resting on bed and complaining of being cold. States he does not know if he feels better. SOB due to NC fell off. No F/C. No CP. Objective - Review of Systems Generalized/Overall Review: Reports: Weakness, Chills, Fatigue. Denies: Fever, Diaphoresis EENTM: Reports: No Symptoms Reported Respiratory: Reports: Shortness of Breath, Orthopnea. Denies: Cough, Wheezing Cardiac: Denies: Chest Pain, Edema, Palpitations Abdominal: Reports: Melena. Denies: Nausea, Vomiting Genitourinary Symptoms: Reports: No Symptoms Reported Musculoskeletal Complaints: Reports: No Symptoms Reported Neurological: Reports: Weakness Skin: Reports: Bruising Endocrine: Reports: No Symptoms Reported - Vitals Vitals: Last Vital Signs Temp 36.8 C 06/03/19 06:00 Pulse 80 06/03/19 11:05 Resp 20 06/03/19 11:05 BP 143/54 06/03/19 09:26 Pulse Ox 98 06/03/19 10:55 - Abnormal Lab Findings Abnormal Lab Findings: Abnormal Lab Results 06/02/19 06/02/19 06/02/19 Range/Units 01:13 12:50 13:10 WBC (4.0-10.5) K/mm3 RBC 2.57 L (4.7-6.0) M/mm3 Hgb 7.8 L* (13.5-18.0) gm/dL Hct 23.5 L* (42.0-52.0) % MCHC (32-36) g/dl RDW 16.7 H (11.5-14.0) % Plt Count 135 L (150-450) K/mm3 MPV 11.9 H (8-11.3) fl Immature Gran % (Auto) 0.70 H (0.001-0.429) % Immature Gran # (Auto) 0.07 H (0.000-0.0310) K/mm3 Neutrophils % (42-75.0) % Lymphocytes % 15.8 L (20-51) % Monocytes % 9.8 H (0.0-9) % Neutrophils # 7.6 H (1.3-6.0) K/mm3 Lymphocytes # (1.5-3.5) k/mm3 PT (9.1-10.7) Seconds INR (Anticoag Therapy) (0.92-1.08) INR PTT ([place]) (24-32) Seconds Sodium (132-142) mmol/L Plasma Sodium (130-142) mmol/L Chloride (97-106) mmol/L BUN (6-23) mg/dL Creatinine (0.4-1.4) mg/dL Est GFR (Non-Af Amer) (60-130) mL/min BUN/Creatinine Ratio (9.0-21.6) Random Glucose (70-110) mg/dL Calcium (7.9-10.9) mg/dL ALT (19-67) U/L Alkaline Phosphatase (50-170) U/L B-Natriuretic Peptide 1320 H (5-650) pg/mL Total Protein (6.2-8.2) gm/dL Albumin (3.4-5.0) gm/dl Crossmatch See Detail 06/02/19 06/02/19 06/02/19 Range/Units 13:10 13:10 20:55 WBC (4.0-10.5) K/mm3 RBC (4.7-6.0) M/mm3 Hgb 8.0 L (13.5-18.0) gm/dL Hct 24.8 L (42.0-52.0) % MCHC (32-36) g/dl RDW (11.5-14.0) % Plt Count (150-450) K/mm3 MPV (8-11.3) fl Immature Gran % (Auto) (0.001-0.429) % Immature Gran # (Auto) (0.000-0.0310) K/mm3 Neutrophils % (42-75.0) % Lymphocytes % (20-51) % Monocytes % (0.0-9) % Neutrophils # (1.3-6.0) K/mm3 Lymphocytes # (1.5-3.5) k/mm3 PT Greater than 100.0 H (9.1-10.7) Seconds INR (Anticoag Therapy) Greater than 9.80 H* (0.92-1.08) INR PTT (Manny) 52.3 H D (24-32) Seconds Sodium 144 H (132-142) mmol/L Plasma Sodium 145 H (130-142) mmol/L Chloride 108 H (97-106) mmol/L BUN 68 H (6-23) mg/dL Creatinine 1.81 H (0.4-1.4) mg/dL Est GFR (Non-Af Amer) 38 L D (60-130) mL/min BUN/Creatinine Ratio 37.6 H (9.0-21.6) Random Glucose 161 H (70-110) mg/dL Calcium 7.8 L (7.9-10.9) mg/dL ALT 8 L (19-67) U/L Alkaline Phosphatase 49 L (50-170) U/L B-Natriuretic Peptide (5-650) pg/mL Total Protein 5.6 L (6.2-8.2) gm/dL Albumin 2.6 L (3.4-5.0) gm/dl Crossmatch 06/03/19 06/03/19 06/03/19 Range/Units 06:00 06:00 06:00 WBC 11.0 H (4.0-10.5) K/mm3 RBC 2.58 L (4.7-6.0) M/mm3 Hgb 7.5 L* (13.5-18.0) gm/dL Hct 23.6 L* (42.0-52.0) % MCHC 31.8 L (32-36) g/dl RDW 17.5 H (11.5-14.0) % Plt Count 132 L (150-450) K/mm3 MPV 11.8 H (8-11.3) fl Immature Gran % (Auto) 1.20 H (0.001-0.429) % Immature Gran # (Auto) 0.13 H (0.000-0.0310) K/mm3 Neutrophils % 92.4 H (42-75.0) % Lymphocytes % 5.0 L (20-51) % Monocytes % (0.0-9) % Neutrophils # 10.2 H (1.3-6.0) K/mm3 Lymphocytes # 0.55 L (1.5-3.5) k/mm3 PT 22.1 H (9.1-10.7) Seconds INR (Anticoag Therapy) 2.31 H (0.92-1.08) INR PTT (Manny) 32.2 H D (24-32) Seconds Sodium 143 H (132-142) mmol/L Plasma Sodium 146 H (130-142) mmol/L Chloride 108 H (97-106) mmol/L BUN 71 H (6-23) mg/dL Creatinine 1.96 H (0.4-1.4) mg/dL Est GFR (Non-Af Amer) 35 L (60-130) mL/min BUN/Creatinine Ratio 36.2 H (9.0-21.6) Random Glucose 267 H D (70-110) mg/dL Calcium 7.7 L (7.9-10.9) mg/dL ALT 11 L (19-67) U/L Alkaline Phosphatase (50-170) U/L B-Natriuretic Peptide (5-650) pg/mL Total Protein 5.6 L (6.2-8.2) gm/dL Albumin 2.5 L (3.4-5.0) gm/dl Crossmatch - EKG/Xray Findings EKG: supravent. tachycardia, atrial fibrillation EKG read: Reviewed by me XRAY: chest Interpretation: Reviewed by me - Exam Constitutional: Present: Alert, Oriented x3, Cooperative, No distress ENT Exam: Present: hard of hearing Neck: Present: non-tender, full range of motion, supple Respiratory: Present: chest non-tender, crackles - diffuse Cardiovascular/Chest: Present: normal peripheral pulses, regular rate, rhythm, no chest tenderness, JVD, diastolic murmur. Absent: edema Abdomen: Present: Normal bowel sounds, soft, other - hepatomegaly /Rectal: Present: Exam deferred Extremity: Present: normal range of motion, inflammation, other - wound of left leg. Absent: lower extremity edema Skin Exam: Present: normal color, warm/dry Neurologic: Present: alert, oriented x 3 Appearance: Present: appropriate appearance Eye contact: Present: cooperative Thoughts: Present: normal thought pattern Assessment/Plan Plan Narrative: Assessment/Plan 84 year old M admittted for symptomatic anemia due to Upper GI Bleed and Supratherapeutic INR MET SIRS CRITERIA - STAT CBC, CMP, LACTIC, CRP, Procalcitonin, Blood,Sputum and Urine Cultures, BNP - Concern for possible CAP due to possible infitrate on single view CXR however not appreciated on 2 view CXR TACO suspected - Concerned for transfusion reaction - Consulted Hematology at [facility] Dr. Lopez MD, advised most likely TACO versus TRALI and sepsis workup will rule out Transfusion Associated Sepsis. Also advised with patient with underlying conditions its comon to have infiltrates on CXR. - Recommend to obtain hemolysis panel, Hold further transfusion and continue current supportive management, monitor labs and diurese. - Not fluid resuscitated and no antibiotics administered Symptomatic Anemia due to Upper GI Bleed - BUN trending upward, and hgb dropping despite therapeutic INR. - Hgb target > 9. - Concern for TACO, will diurese and resume transfusion once patient is less fluid overloaded - Protonix 80 MG IV followed by 40 mg IV daily - Carafate 1 gm BID - Dr. Goldberg on board Asymptomatic Hypernatremia - gentle hydration with D51/2NS @ 75 ml Acute Kidney Injury - Continue to monitor Supratherapeutic INR - Resolved - therapeutic range 2-3 - Hold Coumadin - Lolly AngelMD on board, appreciate recommendations Ulcer of left lower extremity, limited to breakdown of skin - Wound Center Consulted. Appreciate recommendations - Wound care as per their recommendations and RN's recommendations - Tight glycemic control once patient resumes diet - Will obtain A1C to evaluate severity of his diabetes FEN: NPO, D51/2NS @ 75 ML/HR DVT PPX: SCDS CODE STATUS: FULL CODE DISPOSITION: Continue to monitor, diurese, hold transfusions - Problems/Diagnosis (1) TACO (transfusion associated circulatory overload) Problem: Acute (2) GI bleed Problem: Acute Qualifiers: GI bleed type/associated pathology: melena Qualified Code(s): K92.1 - Melena (3) Symptomatic anemia Problem: Acute (4) Acute kidney failure Problem: Acute Qualifiers: Acute renal failure type: unspecified Qualified Code(s): N17.9 - Acute kidney failure, unspecified (5) Acute hypernatremia Problem: Acute (6) Ulcer of left lower extremity, limited to breakdown of skin Problem: Acute (7) Supratherapeutic INR Problem: Resolved (8) Atrial fibrillation with RVR Problem: Resolved
[2019-06-03 13:09] LABS: Mean Cell Volume 91.7 fl (78-100); Mean Corpuscular Hemoglobin 29.6 pg (27-31); Mean Corpuscular Hgb Conc 32.3 g/dl (32-36); Mean Platelet Volume 11.5 fl (8-11.3); Neutrophil # 9.2 K/mm3 (1.3-6.0); Neutrophil % 90.7 % (42-75.0); Platelet Count 128 K/mm3 (150-450); Red Cell Distribution Width 17.8 % (11.5-14.0); White Blood Count 10.1 K/mm3 (4.0-10.5)
[2019-06-03 13:15] LABS: Hemoglobin 7.1 gm/dL (13.5-18.0)
[2019-06-03 13:35] LABS: Albumin * 2.5 gm/dl (3.4-5.0); Anion Gap 11.4 mmol/L (6.8-13.8); BUN/Creatinine Ratio 40.9 (9.0-21.6); Bilirubin, Total 0.6 mg/dL (0.0-1.1); CRP 2.2 mg/dL (0.0-0.9); Ca. Corrected For Albumin 8.8 mg/dL (8.4-10.2); Calcium * 7.9 mg/dL (7.9-10.9); Carbon Dioxide 27.3 mmol/L (24-32.6); Potassium 4.7 mmol/L (3.4-4.6); Total Protein 5.5 gm/dL (6.2-8.2)
[2019-06-03 13:56] LABS: Urine Appearance Clear (CLEAR); Urine Bilirubin Negative (NEGATIVE); Urine Blood Negative /ul (NEGATIVE); Urine Color Yellow; Urine Ketone Negative (NEGATIVE); Urine Nitrite Negative (NEGATIVE); Urine Protein Negative (NEGATIVE); Urine Specific Gravity 1.015 SP.GR. (1.005-1.030); Urine Urobilinogen Normal (NORMAL); Urine pH 5.5 pH (5.0-7.0)
[2019-06-03 13:57] LABS: Urine Amorphous Sediment Few - 1+ (NONE-FEW); Urine Bacteria 1+; Urine RBC None Seen /hpf (0-5); Urine WBC 0-5 /hpf (0-5)
[2019-06-03] MEDS: DEXTROSE 5%-0.5 NORMAL SALINE 1,000 ML IV PRN (14:03)
[2019-06-03] MEDS: FUROSEMIDE 10 MG/ML VIAL IV SCH (14:03)
[2019-06-03 16:27] LABS: Albumin * 2.6 gm/dl (3.4-5.0); Anion Gap 10.9 mmol/L (6.8-13.8); BUN/Creatinine Ratio 39.5 (9.0-21.6); Bilirubin, Total 0.5 mg/dL (0.0-1.1); Ca. Corrected For Albumin 8.8 mg/dL (8.4-10.2); Carbon Dioxide 27.7 mmol/L (24-32.6); Potassium 4.6 mmol/L (3.4-4.6); Total Protein 5.8 gm/dL (6.2-8.2)
[2019-06-03 16:33] LABS: Hemoglobin 7.2 gm/dL (13.5-18.0)
[2019-06-03 16:34] LABS: Hematocrit 22.6 % (42.0-52.0)
[2019-06-03] MEDS: INSULIN LISPRO 100 UNITS/ML VIAL SC SCH ×2 (17:51→20:33)
[2019-06-03] MEDS ORDERED: FUROSEMIDE 10 MG/ML VIAL IV ONE (21:00)
[2019-06-04] MEDS: ALBUTEROL SULFATE/IPRATROPIUM 3 ML NEBU IH SCH ×6 (02:10→22:13)
[2019-06-04] MEDS ORDERED: FUROSEMIDE 10 MG/ML VIAL IV ONE ×3 (03:21→12:57)
[2019-06-04] MEDS: DEXTROSE 5%-0.5 NORMAL SALINE 1,000 ML IV PRN (03:27)
[2019-06-04] MEDS: PANTOPRAZOLE SODIUM 40 MG in NORMAL SALINE 100 ML IV SCH (04:24)
[2019-06-04 05:33] LABS: Mean Cell Volume 92.4 fl (78-100); Mean Corpuscular Hemoglobin 29.5 pg (27-31); Mean Corpuscular Hgb Conc 31.9 g/dl (32-36); Mean Platelet Volume 11.3 fl (8-11.3); Neutrophil # 9.8 K/mm3 (1.3-6.0); Neutrophil % 87.6 % (42-75.0); Platelet Count 139 K/mm3 (150-450); Red Blood Count 2.24 M/mm3 (4.7-6.0); Red Cell Distribution Width 17.7 % (11.5-14.0); White Blood Count 11.2 K/mm3 (4.0-10.5)
[2019-06-04 05:38] LABS: Prothrombin Time (Patient) 12.9 Seconds (9.1-10.7)
[2019-06-04 05:43] LABS: INR 1.32 INR (0.92-1.08)
[2019-06-04 05:49] LABS: Hematocrit 20.7 % (42.0-52.0); Hemoglobin 6.6 gm/dL (13.5-18.0)
[2019-06-04] MEDS: FORMOTEROL FUMARATE 20 MCG/2 ML VIAL IH SCH ×2 (06:03→18:03)
[2019-06-04] MEDS: BUDESONIDE 0.5 MG/2 ML VIAL.NEB IH SCH ×2 (06:03→18:03)
[2019-06-04 06:06] LABS: Albumin * 2.6 gm/dl (3.4-5.0); Anion Gap 12.7 mmol/L (6.8-13.8); BUN/Creatinine Ratio 40.4 (9.0-21.6); Bilirubin, Total 0.5 mg/dL (0.0-1.1); Ca. Corrected For Albumin 8.7 mg/dL (8.4-10.2); Calcium * 7.9 mg/dL (7.9-10.9); Carbon Dioxide 26.6 mmol/L (24-32.6); Potassium 4.3 mmol/L (3.4-4.6); Total Protein 5.6 gm/dL (6.2-8.2)
[2019-06-04] MEDS: CARVEDILOL 12.5 MG TABLET PO SCH ×2 (07:33→17:06)
[2019-06-04] MEDS: INSULIN LISPRO 100 UNITS/ML VIAL SC SCH ×4 (07:34→21:28)
[2019-06-04] MEDS: FUROSEMIDE 10 MG/ML VIAL IV SCH (09:00)
[2019-06-04] MEDS: predniSONE 20 MG TABLET PO SCH (09:01)
[2019-06-04] MEDS: SUCRALFATE 1 G TABLET PO SCH ×2 (09:01→21:16)
[2019-06-04] MEDS: LIDOCAINE 1 PATCH ADH..PATCH TP SCH (09:56)
--- NOTE | 2019-06-04 12:26 | PN ---
Subjective - Date and Time Seen Date: 06/04/19 Time: 12:26 Objective - Review of Systems Generalized/Overall Review: Reports: Weight loss. Denies: Weakness, Chills, Fever EENTM: Reports: Other - dry mouth Respiratory: Reports: Shortness of Breath. Denies: Cough, Orthopnea Cardiac: Denies: Chest Pain, Edema Abdominal: Reports: Melena. Denies: Nausea, Vomiting, Abdominal Pain Genitourinary Symptoms: Reports: No Symptoms Reported Musculoskeletal Complaints: Reports: No Symptoms Reported Neurological: Reports: No Symptoms Reported, Weakness Skin: Reports: Dryness, Bruising - upper extremities and lateral aspect of left leg just above the ankle Endocrine: Reports: Increased Hunger - Vitals Vitals: Last Vital Signs Temp 36.5 C 06/04/19 12:11 Pulse 88 06/04/19 12:11 Resp 18 06/04/19 12:11 BP 134/88 06/04/19 12:11 Pulse Ox 100 06/04/19 12:11 - Abnormal Lab Findings Abnormal Lab Findings: Abnormal Lab Results 06/02/19 06/03/19 06/03/19 Range/Units 01:13 12:40 12:59 WBC (4.0-10.5) K/mm3 RBC (4.7-6.0) M/mm3 Hgb (13.5-18.0) gm/dL Hct (42.0-52.0) % MCHC (32-36) g/dl RDW (11.5-14.0) % Plt Count (150-450) K/mm3 MPV (8-11.3) fl Immature Gran % (Auto) (0.001-0.429) % Immature Gran # (Auto) (0.000-0.0310) K/mm3 Neutrophils % (42-75.0) % Lymphocytes % (20-51) % Neutrophils # (1.3-6.0) K/mm3 Lymphocytes # (1.5-3.5) k/mm3 PT (9.1-10.7) Seconds INR (Anticoag Therapy) (0.92-1.08) INR pCO2 (35.0-48.0) mmHg pO2 (83.0-108.0) mmHg HCO3 (21.0-28.0) mmol/L Base Excess (-2.0-3.0) mmol/L ABG O2 Sat (Measured) (94.0-98.0) % Sodium 143 H (132-142) mmol/L Plasma Sodium 146 H (130-142) mmol/L Potassium 4.7 H (3.4-4.6) mmol/L Chloride 109 H (97-106) mmol/L BUN 81 H (6-23) mg/dL Creatinine 1.98 H (0.4-1.4) mg/dL Est GFR (Non-Af Amer) 34 L (60-130) mL/min BUN/Creatinine Ratio 40.9 H (9.0-21.6) Random Glucose 265 H (70-110) mg/dL ALT 13 L (19-67) U/L Alkaline Phosphatase (50-170) U/L C-Reactive Prot, Quant 2.2 H (0.0-0.9) mg/dL B-Natriuretic Peptide 3385 H (5-650) pg/mL Total Protein 5.5 L (6.2-8.2) gm/dL Albumin 2.5 L (3.4-5.0) gm/dl Urine Bacteria (NONE) Crossmatch See Detail 06/03/19 06/03/19 06/03/19 Range/Units 12:59 13:12 13:39 WBC (4.0-10.5) K/mm3 RBC 2.40 L (4.7-6.0) M/mm3 Hgb 7.1 L* (13.5-18.0) gm/dL Hct 22.0 L* (42.0-52.0) % MCHC (32-36) g/dl RDW 17.8 H (11.5-14.0) % Plt Count 128 L (150-450) K/mm3 MPV 11.5 H (8-11.3) fl Immature Gran % (Auto) 0.70 H (0.001-0.429) % Immature Gran # (Auto) 0.07 H (0.000-0.0310) K/mm3 Neutrophils % 90.7 H (42-75.0) % Lymphocytes % 5.1 L (20-51) % Neutrophils # 9.2 H (1.3-6.0) K/mm3 Lymphocytes # 0.51 L (1.5-3.5) k/mm3 PT (9.1-10.7) Seconds INR (Anticoag Therapy) (0.92-1.08) INR pCO2 33.1 L (35.0-48.0) mmHg pO2 163.7 H (83.0-108.0) mmHg HCO3 18.9 L (21.0-28.0) mmol/L Base Excess -5.7 L (-2.0-3.0) mmol/L ABG O2 Sat (Measured) 99.1 H (94.0-98.0) % Sodium (132-142) mmol/L Plasma Sodium (130-142) mmol/L Potassium (3.4-4.6) mmol/L Chloride (97-106) mmol/L BUN (6-23) mg/dL Creatinine (0.4-1.4) mg/dL Est GFR (Non-Af Amer) (60-130) mL/min BUN/Creatinine Ratio (9.0-21.6) Random Glucose (70-110) mg/dL ALT (19-67) U/L Alkaline Phosphatase (50-170) U/L C-Reactive Prot, Quant (0.0-0.9) mg/dL B-Natriuretic Peptide (5-650) pg/mL Total Protein (6.2-8.2) gm/dL Albumin (3.4-5.0) gm/dl Urine Bacteria 1+ H (NONE) Crossmatch 06/03/19 06/03/19 06/04/19 Range/Units 16:10 16:10 05:25 WBC (4.0-10.5) K/mm3 RBC (4.7-6.0) M/mm3 Hgb 7.2 L* (13.5-18.0) gm/dL Hct 22.6 L* (42.0-52.0) % MCHC (32-36) g/dl RDW (11.5-14.0) % Plt Count (150-450) K/mm3 MPV (8-11.3) fl Immature Gran % (Auto) (0.001-0.429) % Immature Gran # (Auto) (0.000-0.0310) K/mm3 Neutrophils % (42-75.0) % Lymphocytes % (20-51) % Neutrophils # (1.3-6.0) K/mm3 Lymphocytes # (1.5-3.5) k/mm3 PT 12.9 H (9.1-10.7) Seconds INR (Anticoag Therapy) 1.32 H (0.92-1.08) INR pCO2 (35.0-48.0) mmHg pO2 (83.0-108.0) mmHg HCO3 (21.0-28.0) mmol/L Base Excess (-2.0-3.0) mmol/L ABG O2 Sat (Measured) (94.0-98.0) % Sodium (132-142) mmol/L Plasma Sodium 144 H (130-142) mmol/L Potassium (3.4-4.6) mmol/L Chloride 107 H (97-106) mmol/L BUN 83 H (6-23) mg/dL Creatinine 2.10 H (0.4-1.4) mg/dL Est GFR (Non-Af Amer) 32 L (60-130) mL/min BUN/Creatinine Ratio 39.5 H (9.0-21.6) Random Glucose 298 H (70-110) mg/dL ALT 14 L (19-67) U/L Alkaline Phosphatase (50-170) U/L C-Reactive Prot, Quant (0.0-0.9) mg/dL B-Natriuretic Peptide (5-650) pg/mL Total Protein 5.8 L (6.2-8.2) gm/dL Albumin 2.6 L (3.4-5.0) gm/dl Urine Bacteria (NONE) Crossmatch 06/04/19 06/04/19 Range/Units 05:25 05:25 WBC 11.2 H (4.0-10.5) K/mm3 RBC 2.24 L (4.7-6.0) M/mm3 Hgb 6.6 L* (13.5-18.0) gm/dL Hct 20.7 L* (42.0-52.0) % MCHC 31.9 L (32-36) g/dl RDW 17.7 H (11.5-14.0) % Plt Count 139 L (150-450) K/mm3 MPV (8-11.3) fl Immature Gran % (Auto) 1.00 H (0.001-0.429) % Immature Gran # (Auto) 0.11 H (0.000-0.0310) K/mm3 Neutrophils % 87.6 H (42-75.0) % Lymphocytes % 5.0 L (20-51) % Neutrophils # 9.8 H (1.3-6.0) K/mm3 Lymphocytes # 0.56 L (1.5-3.5) k/mm3 PT (9.1-10.7) Seconds INR (Anticoag Therapy) (0.92-1.08) INR pCO2 (35.0-48.0) mmHg pO2 (83.0-108.0) mmHg HCO3 (21.0-28.0) mmol/L Base Excess (-2.0-3.0) mmol/L ABG O2 Sat (Measured) (94.0-98.0) % Sodium (132-142) mmol/L Plasma Sodium 143 H (130-142) mmol/L Potassium (3.4-4.6) mmol/L Chloride (97-106) mmol/L BUN 78 H (6-23) mg/dL Creatinine 1.93 H (0.4-1.4) mg/dL Est GFR (Non-Af Amer) 35 L (60-130) mL/min BUN/Creatinine Ratio 40.4 H (9.0-21.6) Random Glucose 251 H (70-110) mg/dL ALT 12 L (19-67) U/L Alkaline Phosphatase 42 L (50-170) U/L C-Reactive Prot, Quant (0.0-0.9) mg/dL B-Natriuretic Peptide (5-650) pg/mL Total Protein 5.6 L (6.2-8.2) gm/dL Albumin 2.6 L (3.4-5.0) gm/dl Urine Bacteria (NONE) Crossmatch - EKG/Xray Findings XRAY: chest Interpretation: Reviewed by Deepthi vick w/ radiologist - when all compared right pleural effusion on all 3 chest X-rays appreciated - Exam Constitutional: Present: Alert, Oriented x3, Cooperative ENT Exam: Present: hard of hearing Neck: Present: non-tender, full range of motion, supple Respiratory: Present: lungs clear, normal breath sounds, no respiratory distress, no accessory muscle use, No rales, No wheezing Cardiovascular/Chest: Present: normal peripheral pulses, regular rate, rhythm, no chest tenderness, no edema, no gallop, no JVD, no murmur Abdomen: Present: Normal bowel sounds, soft, nontender, nondistended, no rebound tenderness, no hepatospenomegaly Extremity: Present: normal range of motion, non-tender, normal inspection, no pedal edema, no calf tenderness, normal capillary refill, other - abrasion of the left leg Skin Exam: Present: normal color, warm/dry, other - abrasion of the left leg Neurologic: Present: alert, oriented x 3 Appearance: Present: appropriate appearance, appropriate insight Eye contact: Present: cooperative, good eye contact, normal speech Thoughts: Present: normal thought pattern, normal mood /affect Assessment/Plan Plan Narrative: Assessment/Plan 84 year old M admitted for symptomatic anemia due to Upper GI Bleed and Supratherapeutic INR MET SIRS CRITERIA - STAT CBC, CMP, LACTIC, CRP, Procalcitonin, Blood,Sputum and Urine Cultures, BNP - Concern for possible CAP due to possible infitrate on single view CXR however not appreciated on 2 view CXR TACO in the setting of CHF - Consulted Hematology at [facility] Dr. Lopez MD, advised hold on transfusion, continue current supportive management, monitor labs and diurese. - Diueresed well overnight total lost since admission is approx 19 kg - (41.8lbs) - Continue home dose of furosemide 40 mg PO BID - 20 mg IV BID, transition to PO in AM. Symptomatic anemia due to Upper GI Bleed - Hgb is not at target > 9. - Resumed transfusion this AM - Repeat H&H and CMP at 1600 - Protonix 80 MG IV followed by 40 mg IV daily - Carafate 1 gm BID - Dr. Goldberg on board Asymptomatic Hypernatremia - Improving - Continue D51/2NS @ 75 ml - Gentle hydration Acute Kidney Injury - Improving Subtherapeutic INR - BUN trending down - Due to poor monitoring of INR outpatient, consider transitioning to Eliquis 2.5 mg PO BID starting in AM if it is affordable, will awaiting pricing before starting medication -Continue to Hold Coumadin - Lolly AngelMD on board, appreciate recommendations Ulcer of left lower extremity, limited to breakdown of skin - Wound Center Consulted. Appreciate recommendations - Wound care as per their recommendations and RN's recommendations - Tight glycemic control once patient resumes diet - Will obtain A1C to evaluate severity of his diabetes FEN: NPO, D51/2NS @ 75 ML/HR DVT PPX: SCDS CODE STATUS: FULL CODE DISPOSITION: -Pending 1600 Labs, will most likely resume clear liquid diet - Continue to monitor, gentle hydration, continue to diurese, - Pending procalcitonin with concern for right pleural effusiona and mild leukocytosis will most likely start on cefepime for adequate coverage for pneumonia since he has been hospitalized since Friday - Will await to hear about pricing and consider transitioning to eliquis prior to discharge - Anticipate discharge within 24-48 hours. - Problems/Diagnosis (1) TACO (transfusion associated circulatory overload) Problem: Acute (2) GI bleed Problem: Acute Qualifiers: GI bleed type/associated pathology: melena Qualified Code(s): K92.1 - Melena (3) Symptomatic anemia Problem: Acute (4) Acute kidney failure Problem: Acute Qualifiers: Acute renal failure type: unspecified Qualified Code(s): N17.9 - Acute kidney failure, unspecified (5) Acute hypernatremia Problem: Acute (6) Ulcer of left lower extremity, limited to breakdown of skin Problem: Acute Narrative: ABRASION FROM FALL WHILST INR WAS > 9, SUPERFICIAL NO CONCERN FOR INFECTION Wound Center Consulted and on board (7) Supratherapeutic INR Problem: Resolved (8) Atrial fibrillation with RVR Problem: Resolved
[2019-06-04 16:37] LABS: Hematocrit 25.1 % (42.0-52.0); Hemoglobin 8.2 gm/dL (13.5-18.0)
[2019-06-04 16:51] LABS: Albumin * 2.9 gm/dl (3.4-5.0); Anion Gap 9.3 mmol/L (6.8-13.8); BUN/Creatinine Ratio 38.9 (9.0-21.6); Bilirubin, Total 0.6 mg/dL (0.0-1.1); Ca. Corrected For Albumin 8.8 mg/dL (8.4-10.2); Calcium * 8.2 mg/dL (7.9-10.9); Carbon Dioxide 29.9 mmol/L (24-32.6); Potassium 4.2 mmol/L (3.4-4.6); Total Protein 5.9 gm/dL (6.2-8.2)
[2019-06-04] MEDS ORDERED: NORMAL SALINE 1,000 ML IV PRN (20:51)
[2019-06-04] MEDS ORDERED: FUROSEMIDE 10 MG/ML VIAL IV SCH (21:00)
[2019-06-05] MEDS: ALBUTEROL SULFATE/IPRATROPIUM 3 ML NEBU IH SCH ×3 (02:11→10:48)
[2019-06-05 03:08] LABS: Haptoglobin 164 mg/dL (43-212)
[2019-06-05 05:06] LABS: Mean Cell Volume 92.7 fl (78-100); Mean Corpuscular Hemoglobin 30.1 pg (27-31); Mean Corpuscular Hgb Conc 32.5 g/dl (32-36); Mean Platelet Volume 11.1 fl (8-11.3); Neutrophil # 5.1 K/mm3 (1.3-6.0); Neutrophil % 82.6 % (42-75.0); Platelet Count 110 K/mm3 (150-450); Red Blood Count 2.46 M/mm3 (4.7-6.0); Red Cell Distribution Width 16.6 % (11.5-14.0); White Blood Count 6.2 K/mm3 (4.0-10.5)
[2019-06-05 05:13] LABS: Hematocrit 22.8 % (42.0-52.0); Hemoglobin 7.4 gm/dL (13.5-18.0)
[2019-06-05 05:17] LABS: Albumin * 2.5 gm/dl (3.4-5.0); Anion Gap 10.7 mmol/L (6.8-13.8); BUN/Creatinine Ratio 36.6 (9.0-21.6); Bilirubin, Total 0.5 mg/dL (0.0-1.1); Ca. Corrected For Albumin 8.6 mg/dL (8.4-10.2); Calcium * 7.7 mg/dL (7.9-10.9); Carbon Dioxide 29.2 mmol/L (24-32.6); Potassium 3.9 mmol/L (3.4-4.6); Total Protein 5.3 gm/dL (6.2-8.2)
[2019-06-05] MEDS: PANTOPRAZOLE SODIUM 40 MG in NORMAL SALINE 100 ML IV SCH (05:21)
[2019-06-05] MEDS: FORMOTEROL FUMARATE 20 MCG/2 ML VIAL IH SCH (06:02)
[2019-06-05] MEDS: BUDESONIDE 0.5 MG/2 ML VIAL.NEB IH SCH (06:04)
[2019-06-05] MEDS: INSULIN LISPRO 100 UNITS/ML VIAL SC SCH ×2 (07:45→11:27)
[2019-06-05] MEDS: CARVEDILOL 12.5 MG TABLET PO SCH (07:45)
[2019-06-05] MEDS: SUCRALFATE 1 G TABLET PO SCH (08:38)
[2019-06-05] MEDS: LIDOCAINE 1 PATCH ADH..PATCH TP SCH (08:40)
[2019-06-05] MEDS: predniSONE 20 MG TABLET PO SCH (08:40)
[2019-06-05] MEDS ORDERED: APIXABAN 2.5 MG TABLET PO SCH (09:00)
[2019-06-05] MEDS ORDERED: FUROSEMIDE 20 MG TABLET PO SCH (09:00)
[2019-06-05] MEDS ORDERED: MECLIZINE HCL 25 MG TABLET PO PRN (09:35)
[2019-06-05 11:20] LABS: Mean Corpuscular Hgb Conc 32.2 g/dl (32-36); Mean Platelet Volume 10.1 fl (8-11.3); Neutrophil # 5.4 K/mm3 (1.3-6.0); Neutrophil % 82.7 % (42-75.0); Platelet Count 118 K/mm3 (150-450); Red Blood Count 2.57 M/mm3 (4.7-6.0); Red Cell Distribution Width 16.7 % (11.5-14.0); White Blood Count 6.5 K/mm3 (4.0-10.5)
[2019-06-05 11:28] LABS: Hemoglobin 7.7 gm/dL (13.5-18.0)
[2019-06-05 11:29] LABS: Hematocrit 23.9 % (42.0-52.0)
--- NOTE | 2019-06-05 11:54 | DS ---
(1) GI bleed Problem: Acute Qualifiers: GI bleed type/associated pathology: melena Qualified Code(s): K92.1 - Melena (2) Supratherapeutic INR Problem: Resolved (3) Ulcer of left lower extremity, limited to breakdown of skin Problem: Acute (4) Atrial fibrillation with RVR Problem: Resolved (5) Symptomatic anemia Problem: Acute (6) TACO (transfusion associated circulatory overload) Problem: Resolved (7) Acute kidney failure Problem: Acute Qualifiers: Acute renal failure type: unspecified Qualified Code(s): N17.9 - Acute kidney failure, unspecified (8) Acute hypernatremia Problem: Acute (9) S/P CABG (coronary artery bypass graft) Problem: Acute Date of Discharge:: 06/05/19 Hospital Course: Camron Morales is an 84-year-old male admitted for GI bleeding and anemia. He received a total of 5 units of blood transfused during the hospitalization. His last transfusion was yesterday and his posttransfusion hemoglobin was 8.4 g. CBC was drawn at 5 AM this morning and the hemoglobin had dropped to 7.2 g. I repeated the H&H at 11 AM and it is up to 7.7 g. Therefore I have decided not to give any more blood. He is otherwise stable and is ambulatory and I believe can be discharged to home safely now. His INR on admission was 9.8 and this morning is 1.3. He is not had any bleeding being on a apixaban 2-1/2 mg twice daily. He should report any more rectal bleeding immediately and return to the hospital as he would need more transfusions. He has been on clear liquids until now. I allowed him a consistent carb diet which include roast beef potatoes and gravy and vegetables which she has eaten completely and had no GI issues arise. He will be discharged home. Procedures Performed: see notes below List Procedures: Blood transfusions x5 units of packed red blood cells Results and Findings: Pending Mircobiology Results 06/03/19 12:56 Blood Blood Culture - Preliminary NO GROWTH 24 HOURS 06/03/19 12:30 Blood Blood Culture - Preliminary NO GROWTH 24 HOURS Lab Pending Results 06/02/19 01:13: WBC 10.3, RBC 2.13 L, Hgb 6.5 L* D, Hct 20.2 L* D, MCV 94.8, MCH 30.5, MCHC 32.2, RDW 16.9 H, Plt Count 141 L, MPV 11.1, Immature Gran % (Auto) 0.60 H, Immature Gran # (Auto) 0.06 H, Neutrophils % 76.0 H, Lymphocytes % 14.9 L, Monocytes % 7.6, Eosinophils % 0.5, Basophils % 0.4, Nucleated RBC % 0.0, Neutrophils # 7.8 H, Lymphocytes # 1.53, Monocytes # 0.8, Eosinophils # 0.1, Absolute Basophils 0.0 06/02/19 01:13: Sodium 142, Plasma Sodium 143 H, Potassium 3.8 D, Chloride 106, Carbon Dioxide 25.9, Anion Gap 13.9 H, BUN 65 H D, Creatinine 2.14 H D, Est GFR (Non-Af Amer) 31 L D, BUN/Creatinine Ratio 30.4 H, Random Glucose 188 H, Calcium 8.0, Calcium Adj for Albumin 8.6, Total Bilirubin 0.3, AST 20, ALT 9 L, Alkaline Phosphatase 61, Total Protein 6.1 L, Albumin 2.8 L, Amylase 55, Lipase 138 06/02/19 01:13: PT Greater than 100.0 H, INR (Anticoag Therapy) Greater than 9.80 H* 06/02/19 01:13: Blood Type A Negative, Antibody Screen Negative, Crossmatch See Detail 06/02/19 01:51: Stool Occult Blood Positive H 06/02/19 10:30: Urine Color Yellow, Urine Appearance Clear, Urine pH 5.0, Ur Specific [place] 1.015, Urine Protein Negative, Urine Glucose (UA) Negative, Urine Ketones Negative, Urine Blood Negative, Urine Nitrate Negative, Urine Bilirubin Negative, Urine Urobilinogen Normal, Ur Leukocyte Esterase Negative, Urine RBC None seen, Urine WBC 0-5, Ur Epithelial Cells Trace, Amorphous Sediment Few - 1+, Urine Bacteria None seen, Urine Culture Comments No culture indicated 06/02/19 12:50: Sodium Cancelled, Plasma Sodium Cancelled, Potassium Cancelled, Chloride Cancelled, Carbon Dioxide Cancelled, Anion Gap Cancelled, BUN Cancelled, Creatinine Cancelled, Est GFR (Non-Af Amer) Cancelled, BUN/Creatinine Ratio Cancelled, Random Glucose Cancelled, Calcium Cancelled, Creatine Kinase 89, CK-MB (CK-2) 1.5, CK-MB (CK-2) Rel Index 1.7, Troponin I 0.026, B-Natriu retic Peptide 1320 H 06/02/19 13:10: WBC 10.4, RBC 2.57 L, Hgb 7.8 L*, Hct 23.5 L*, MCV 91.4, MCH 30.4, MCHC 33.2, RDW 16.7 H, Plt Count 135 L, MPV 11.9 H, Immature Gran % (Auto) 0.70 H, Immature Gran # (Auto) 0.07 H, Neutrophils % 72.7, Lymphocytes % 15.8 L, Monocytes % 9.8 H, Eosinophils % 0.6, Basophils % 0.4, Nucleated RBC % 0.0, Neutrophils # 7.6 H, Lymphocytes # 1.64, Monocytes # 1.0, Eosinophils # 0.1, Absolute Basophils 0.0 06/02/19 13:10: Sodium 144 H, Plasma Sodium 145 H, Potassium 4.0, Chloride 108 H, Carbon Dioxide 26.5, Anion Gap 13.5, BUN 68 H, Creatinine 1.81 H, Est GFR (Non-Af Amer) 38 L D, BUN/Creatinine Ratio 37.6 H, Random Glucose 161 H, Calcium 7.8 L, Calcium Adj for Albumin 8.6, Total Bilirubin 0.4, AST 19, ALT 8 L, Alk yolanda Phosphatase 49 L, Total Protein 5.6 L, Albumin 2.6 L 06/02/19 13:10: PT Greater than 100.0 H, INR (Anticoag Therapy) Greater than 9.80 H*, PTT (Manny) 52.3 H D 06/02/19 20:55: Creatine Kinase 162, CK-MB (CK-2) 2.0, CK-MB (CK-2) Rel Index 1.2, Troponin I 0.027 06/02/19 20:55: Hgb 8.0 L, Hct 24.8 L 06/03/19 06:00: PT 22.1 H, INR (Anticoag Therapy) 2.31 H, PTT ([place]) 32.2 H D 06/03/19 06:00: WBC 11.0 H, RBC 2.58 L, Hgb 7.5 L*, Hct 23.6 L*, MCV 91.5, MCH 29.1, MCHC 31.8 L, RDW 17.5 H, Plt Count 132 L, MPV 11.8 H, Immature Gran % (Auto) 1.20 H, Immature Gran # (Auto) 0.13 H, Neutrophils % 92.4 H, Lymphocytes % 5.0 L, Monocytes % 1.3, Eosinophils % 0.0, Basophils % 0.1, Nucleated RBC % 0.0, Neutrophils # 10.2 H, Lymphocytes # 0.55 L, Monocytes # 0.1, Eosinophils # 0.0, Absolute Basophils 0.0 06/03/19 06:00: Sodium 143 H, Plasma Sodium 146 H, Potassium 4.6, Chloride 108 H, Carbon Dioxide 25.9, Anion Gap 13.7, BUN 71 H, Creatinine 1.96 H, Est GFR (Non-Af Amer) 35 L, BUN/Creatinine Ratio 36.2 H, Random Glucose 267 H D, Calcium 7.7 L, Calcium Adj for Albumin 8.6, Total Bilirubin 0.6, AST 26, ALT 11 L, Alkaline Phosphatase 56, Total Protein 5.6 L, Albumin 2.5 L 06/03/19 06:00: Lactic Acid, Venous 1.2 06/03/19 12:40: Haptoglobin 164 06/03/19 12:40: B-Natriuretic Peptide 3385 H 06/03/19 12:59: Sodium 143 H, Plasma Sodium 146 H, Potassium 4.7 H, Chloride 109 H, Carbon Dioxide 27.3, Anion Gap 11.4, BUN 81 H, Creatinine 1.98 H, Est GFR (Non-Af Amer) 34 L, BUN/Creatinine Ratio 40.9 H, Random Glucose 265 H, Calcium 7.9, Calcium Adj for Albumin 8.8, Total Bilirubin 0.6, AST 26, ALT 13 L, Alkaline Phosphatase 53, C-Reactive Prot, Quant 2.2 H, Total Protein 5.5 L, Albumin 2.5 L 06/03/19 12:59: Procalcitonin 0.06 06/03/19 12:59: WBC 10.1, RBC 2.40 L, Hgb 7.1 L*, Hct 22.0 L*, MCV 91.7, MCH 29.6, MCHC 32.3, RDW 17.8 H, Plt Count 128 L, MPV 11.5 H, Immature Gran % (Auto) 0.70 H, Immature Gran # (Auto) 0.07 H, Neutrophils % 90.7 H, Lymphocytes % 5.1 L, Monocytes % 3.4, Eosinophils % 0.0, Basophils % 0.1, Nucleated RBC % 0.0, Neutrophils # 9.2 H, Lymphocytes # 0.51 L, Monocytes # 0.3, Eosinophils # 0.0, Absolute Basophils 0.0 06/03/19 13:12: pCO2 33.1 L, pO2 163.7 H, HCO3 18.9 L, Total CO2 19.9, Base Excess -5.7 L, ABG pH 7.38, ABG O2 Sat (Measured) 99.1 H 06/03/19 13:39: Urine Color Yellow, Urine Appearance Clear, Urine pH 5.5, Ur Specific [place] 1.015, Urine Protein Negative, Urine Glucose (UA) Negative, Urine Ketones Negative, Urine Blood Negative, Urine Nitrate Negative, Urine Bilirubin Negative, Urine Urobilinogen Normal, Ur Leukocyte Esterase Negative, Urine RBC None seen, Urine WBC 0-5, Ur Epithelial Cells 0-5, Amorphous Sediment Few - 1+, Urine Bacteria 1+ H 06/03/19 16:10: Hgb 7.2 L*, Hct 22.6 L* 06/03/19 16:10: Sodium 141, Plasma Sodium 144 H, Potassium 4.6, Chloride 107 H, Carbon Dioxide 27.7, Anion Gap 10.9, BUN 83 H, Creatinine 2.10 H, Est GFR (Non- Af Amer) 32 L, BUN/Creatinine Ratio 39.5 H, Random Glucose 298 H, Calcium 8.0, Calcium Adj for Albumin 8.8, Total Bilirubin 0.5, AST 29, ALT 14 L, Alkaline Phosphatase 56, Total Protein 5.8 L, Albumin 2.6 L 06/04/19 05:25: PT 12.9 H, INR (Anticoag Therapy) 1.32 H, PTT (Manny) 25.0 D 06/04/19 05:25: WBC 11.2 H, RBC 2.24 L, Hgb 6.6 L*, Hct 20.7 L*, MCV 92.4, MCH 29.5, MCHC 31.9 L, RDW 17.7 H, Plt Count 139 L, MPV 11.3, Immature Gran % (Auto) 1.00 H, Immature Gran # (Auto) 0.11 H, Neutrophils % 87.6 H, Lymphocytes % 5.0 L, Monocytes % 6.3, Eosinophils % 0.0, Basophils % 0.1, Nucleated RBC % 0.0, Neutrophils # 9.8 H, Lymphocytes # 0.56 L, Monocytes # 0.7, Eosinophils # 0.0, Absolute Basophils 0.0 06/04/19 05:25: Sodium 141, Plasma Sodium 143 H, Potassium 4.3, Chloride 106, Carbon Dioxide 26.6, Anion Gap 12.7, BUN 78 H, Creatinine 1.93 H, Est GFR (Non- Af Amer) 35 L, BUN/Creatinine Ratio 40.4 H, Random Glucose 251 H, Calcium 7.9, Calcium Adj for Albumin 8.7, Total Bilirubin 0.5, AST 26, ALT 12 L, Alkaline Phosphatase 42 L, Total Protein 5.6 L, Albumin 2.6 L 06/04/19 13:02: Procalcitonin 0.07 06/04/19 16:35: Hgb 8.2 L, Hct 25.1 L 06/04/19 16:35: Sodium 139, Plasma Sodium 142, Potassium 4.2, Chloride 104, Carbon Dioxide 29.9, Anion Gap 9.3, BUN 75 H, Creatinine 1.93 H, Est GFR (Non-Af Amer) 35 L, BUN/Creatinine Ratio 38.9 H, Random Glucose 269 H, Calcium 8.2, Calcium Adj for Albumin 8.8, Total Bilirubin 0.6, AST 27, ALT 11 L, Alkaline Phosphatase 47 L, Total Protein 5.9 L, Albumin 2.9 L 06/05/19 05:00: WBC 6.2 D, RBC 2.46 L, Hgb 7.4 L*, Hct 22.8 L*, MCV 92.7, MCH 30.1, MCHC 32.5, RDW 16.6 H, Plt Count 110 L, MPV 11.1, Immature Gran % (Auto) 0.70 H, Immature Gran # (Auto) 0.04 H, Neutrophils % 82.6 H, Lymphocytes % 8.0 L, Monocytes % 8.5, Eosinophils % 0.0, Basophils % 0.2, Nucleated RBC % 0.0, Neutrophils # 5.1, Lymphocytes # 0.49 L, Monocytes # 0.5, Eosinophils # 0.0, Absolute Basophils 0.0 06/05/19 05:00: Sodium 139, Plasma Sodium 141, Potassium 3.9, Chloride 103, Carbon Dioxide 29.2, Anion Gap 10.7, BUN 63 H, Creatinine 1.72 H, Est GFR (Non- Af Amer) 40 L, BUN/Creatinine Ratio 36.6 H, Random Glucose 212 H, Calcium 7.7 L, Calcium Adj for Albumin 8.6, Total Bilirubin 0.5, AST 24, ALT 15 L, Alkaline Phosphatase 46 L, Total Protein 5.3 L, Albumin 2.5 L 06/05/19 11:16: WBC 6.5, RBC 2.57 L, Hgb 7.7 L*, Hct 23.9 L*, MCV 93.0, MCH 30.0, MCHC 32.2, RDW 16.7 H, Plt Count 118 L, MPV 10.1, Immature Gran % (Auto) 0.80 H, Immature Gran # (Auto) 0.05 H, Neutrophils % 82.7 H, Lymphocytes % 7.7 L, Monocytes % 8.6, Eosinophils % 0.2, Basophils % 0.0, Nucleated RBC % 0.0, Neutrophils # 5.4, Lymphocytes # 0.50 L, Monocytes # 0.6, Eosinophils # 0.0, Absolute Basophils 0.0 Discharge Location: Home Disposition: Home self-care Condition: Fair Face to Face Encounter completed per [facility] Guidelines: No Discharge Activity: Activity as tolerated Discharge Diet: Consistent carbs Referrals: Brendan Tobin DO [Primary Care Provider] - Additional Patient Instructions (free text): He will need another hemoglobin and hematocrit check on Friday. He should see Neto Tobin latter part of next week. Prescriptions (Any new or edited meds): Sucralfate [Carafate] 1 g PO QID #60 tab Transmission Status: Received by [facility] Apixaban [Eliquis] 2.5 mg PO BID #60 tab Transmission Status: Received by [facility] Apixaban [Eliquis] 2.5 mg PO BID #60 tab Transmission Status: Received by [facility] Furosemide [Lasix] 20 mg PO DAILY #30 tab Transmission Status: Received by [facility] Complete Home Medications List: Complete Home Medication List: Aspirin [Aspir-Low] 81 mg PO DAILY 03/14/19 Carvedilol [Coreg] 12.5 mg PO BIDAC 03/14/19 Cetirizine HCl [Zyrtec] 10 mg PO DAILY 03/14/19 Furosemide [Lasix] 40 mg PO 0900,1200 03/14/19 Gabapentin 300 mg PO HS 03/14/19 Lisinopril [Prinivil] 5 mg PO DAILY 03/14/19 Meclizine HCl 25 mg PO TID PRN 03/14/19 Montelukast Sodium [Singulair] 10 mg PO HS 03/14/19 Pantoprazole Sodium [Protonix] 40 mg PO Q12H 03/14/19 Tamsulosin HCl 0.4 mg PO HS 03/14/19 predniSONE [Prednisone] 2.5 mg PO DAILY 03/14/19 Albuterol Sulfate [Proair Respiclick] 2 puff INHALATION Q6H PRN 06/02/19 Arformoterol Tartrate [Brovana] 15 mcg INHALATION BID 06/02/19 Budesonide [Pulmicort Respules] 2 ml INHALATION BID 06/02/19 Cholecalciferol [Vitamin D] 50,000 unit PO Q7D 06/02/19 Ferrous Sulfate [Ferosul] 220 mg PO DAILY 06/02/19 Formoterol Fumarate [Perforomist] 20 mcg INHALATION BID 06/02/19 Insulin Glargine,Hum.rec.anlog [Lantus Solostar] 40 unit SQ BID 06/02/19 Ipratropium/Albuterol Sulfate [Iprat-Albut 0.5-3(2.5) mg/3 ml] 3 ml INHALATION Q4H 06/02/19 Lidocaine [Lidoderm 5%] 1 patch TOPICAL DAILY 06/02/19 Mupirocin [Bactroban] 1 appl TOPICAL DAILY 06/02/19 Polyethylene Glycol 3350 [Miralax] 17 gm PO DAILY 06/02/19 Sennosides [Senna] 8.6 mg PO BID 06/02/19 Sennosides/Docusate Sodium [Senna-Docusate Sodium Tablet] 1 ea PO BID 06/02/19 Apixaban [Eliquis] 2.5 mg PO BID #60 tab 06/04/19 Acetaminophen [Tylenol] 650 mg PO Q6H PRN tab 06/05/19 Apixaban [Eliquis] 2.5 mg PO BID #60 tab 06/05/19 Furosemide [Lasix] 20 mg PO DAILY #30 tab 06/05/19 Sucralfate [Carafate] 1 g PO QID #60 tab 06/05/19 Amb Orders for Discharge: CBC Time Frame: 2 Days, Facility: [facility], Location: Laboratory
[2019-06-05] MEDS ORDERED: FUROSEMIDE 40 MG TABLET PO SCH (12:00)
[2019-06-05 14:19] VITALS: BP 146/64
[2019-06-05] MEDS ORDERED: TAMSULOSIN HCL 0.4 MG CAP.SR.24H PO SCH (18:00)
[2019-06-05] MEDS ORDERED: INSULIN GLARGINE,HUM.REC.ANLOG 100 UNITS/ML VIAL SC SCH (21:00)
[2019-06-05] MEDS ORDERED: GABAPENTIN 300 MG CAPSULE PO SCH (21:00)
[2019-06-05] MEDS ORDERED: PANTOPRAZOLE SODIUM 40 MG TABLET.EC PO SCH (21:00)
[2019-06-05] MEDS ORDERED: SENNOSIDES/DOCUSATE SODIUM 1 TAB TABLET PO SCH (21:00)
[2019-06-05] MEDS ORDERED: SENNOSIDES 8.6 MG TABLET PO SCH (21:00)
[2019-06-05] MEDS ORDERED: MONTELUKAST SODIUM 10 MG TABLET PO SCH (21:00)
[2019-06-06] MEDS ORDERED: POLYETHYLENE GLYCOL 3350 119 GM BTL PO SCH (09:00)
[2019-06-06] MEDS ORDERED: LISINOPRIL 5 MG TABLET PO SCH (09:00)
[2019-06-06] MEDS ORDERED: FERROUS SULFATE 220 MG/5 ML ELIXIR PO SCH (09:00)
[2019-06-06] MEDS ORDERED: MUPIROCIN 22 APPL TUBE TP SCH (09:00)
== END 2019-06-05 15:14 | disposition home or self-care (01) | DRG 378 ==
LOC: ER 00:11 → MS 00:11
PROVIDERS: ADMIT Family Medicine; ATTEND Family Medicine
DX: D64.9 Anemia, unspecified; L97.921 Non-pressure chronic ulcer of unspecified part of left lower leg limited to breakdown of skin; I48.20 Chronic atrial fibrillation, unspecified; N17.9 Acute kidney failure, unspecified; Z79.01 Long term (current) use of anticoagulants; E11.622 Type 2 diabetes mellitus with other skin ulcer; L97.321 Non-pressure chronic ulcer of left ankle limited to breakdown of skin; E87.0 Hyperosmolality and hypernatremia; W01.190A Fall on same level from slipping, tripping and stumbling with subsequent striking against furniture, initial encounter; L97.821 Non-pressure chronic ulcer of other part of left lower leg limited to breakdown of skin; S81.812A Laceration without foreign body, left lower leg, initial encounter; I50.9 Heart failure, unspecified; F17.220 Nicotine dependence, chewing tobacco, uncomplicated; I11.0 Hypertensive heart disease with heart failure; E87.71 Transfusion associated circulatory overload; D68.8 Other specified coagulation defects; J44.9 Chronic obstructive pulmonary disease, unspecified; K92.2 Gastrointestinal hemorrhage, unspecified
CPT/HCPCS: 36415; 36430; 36600; 71010; 71020; 71045; 71046; 74019; 74020; 74176; 80053; 81001; 82150; 82272; 82550; 82553; 82803; 83010; 83519; 83605; 83690; 83880; 84145; 84484; 85014; 85018; 85025; 85610; 85730; 86140; 86850; 87040; 87070; 87086; 93005; 94640; 96365; 96366; 96375; 96376; 99284; 99285; G0378; J2405; P9016

== ENCOUNTER 2019-12-10 19:36 | Inpatient (IN) ==
--- NOTE | 2019-12-10 20:12 | ERNOTE ---
Neuro HPI ER Record Date of Service: 12/10/19 Presenting Symptoms: weakness, confusion Time Seen by Provider: 12/10/19 20:07 Source: long term records, past records, other - long term provider Immunizations: IMMUNIZATION HX Immunizations Up to Date No History of Influenza Vaccine More Information Required Hx Pneumococcal Vaccination More Information Required Allergies/Adverse Reactions: Allergies Allergy/AdvReac Type Severity Reaction Status Date / Time Influenza Virus Vaccines AdvReac Unknown "Deadly Verified 12/10/19 20:17 Sick" Home Medications: HOME MEDICATIONS Aspirin [Aspir-Low] 81 mg PO DAILY 03/14/19 [Last Taken Unknown] Carvedilol [Coreg] 12.5 mg PO BIDAC 03/14/19 [Last Taken Unknown] Cetirizine HCl [Zyrtec] 10 mg PO DAILY 03/14/19 [Last Taken Unknown] Furosemide [Lasix] 40 mg PO 0900,1200 03/14/19 [Last Taken Unknown] Gabapentin 300 mg PO HS 03/14/19 [Last Taken Unknown] Lisinopril [Prinivil] 5 mg PO DAILY 03/14/19 [Last Taken Unknown] Meclizine HCl 25 mg PO TID PRN 03/14/19 [Last Taken Unknown] Montelukast Sodium [Singulair] 10 mg PO HS 03/14/19 [Last Taken Unknown] Pantoprazole Sodium [Protonix] 40 mg PO Q12H 03/14/19 [Last Taken Unknown] Tamsulosin HCl 0.4 mg PO HS 03/14/19 [Last Taken Unknown] predniSONE [Prednisone] 2.5 mg PO DAILY 03/14/19 [Last Taken Unknown] Albuterol Sulfate [Proair Respiclick] 2 puff INHALATION Q6H PRN 06/02/19 [Last Taken Unknown] Arformoterol Tartrate [Brovana] 15 mcg INHALATION BID 06/02/19 [Last Taken Unknown] Budesonide [Pulmicort Respules] 2 ml INHALATION BID 06/02/19 [Last Taken Unknown] Cholecalciferol [Vitamin D] 50,000 unit PO Q7D 06/02/19 [Last Taken Unknown] Ferrous Sulfate [Ferosul] 220 mg PO DAILY 06/02/19 [Last Taken Unknown] Formoterol Fumarate [Perforomist] 20 mcg INHALATION BID 06/02/19 [Last Taken Unknown] Insulin Glargine,Hum.rec.anlog [Lantus Solostar] 40 unit SQ BID 06/02/19 [Last Taken Unknown] Ipratropium/Albuterol Sulfate [Iprat-Albut 0.5-3(2.5) mg/3 ml] 3 ml INHALATION Q4H 06/02/19 [Last Taken Unknown] Lidocaine [Lidoderm 5%] 1 patch TOPICAL DAILY 06/02/19 [Last Taken Unknown] Mupirocin [Bactroban] 1 appl TOPICAL DAILY 06/02/19 [Last Taken Unknown] Polyethylene Glycol 3350 [Miralax] 17 gm PO DAILY 06/02/19 [Last Taken Unknown] Sennosides [Senna] 8.6 mg PO BID 06/02/19 [Last Taken Unknown] Sennosides/Docusate Sodium [Senna-Docusate Sodium Tablet] 1 ea PO BID 06/02/19 [Last Taken Unknown] Apixaban [Eliquis] 2.5 mg PO BID #60 tab 06/04/19 [Last Taken Unknown] Acetaminophen [Tylenol] 650 mg PO Q6H PRN tab 06/05/19 [Last Taken Unknown] Apixaban [Eliquis] 2.5 mg PO BID #60 tab 06/05/19 [Last Taken Unknown] Furosemide [Lasix] 20 mg PO DAILY #30 tab 06/05/19 [Last Taken Unknown] Sucralfate [Carafate] 1 g PO QID #60 tab 06/05/19 [Last Taken Unknown] Potassium Chloride [K-Dur] 20 meq PO DAILY #30 tab 06/09/19 [Last Taken Unknown] - History of Present Illness Narrative: custodial since patient for evaluation due to 3 falls over the last 12 hours and possible increasing confusion. He was recently treated for pneumonia and bladder infection. He is not currently on antibiotics. He does have increased confusion and dementia at baseline. The nurse who gives report has care for him only just today. She has no knowledge of him hitting his head, patient himself denies any pain. he has a fib, is on eliquis. has diabetes. Review of Systems - Narrative Narrative: unable to assess Medical History (Last Reviewed 12/10/19 @ 20:01 by Yanira Licea MD) Allergies Anemia Atrial fibrillation BPH (benign prostatic hyperplasia) CHF (congestive heart failure) Diabetes mellitus, type 2 Hyperlipidemia Hypertension Neuropathy Surgical History: Surgical History (Last Reviewed 12/10/19 @ 20:01 by Yanira Licea MD) H/O aortic valve replacement History of bilateral knee replacement History of tonsillectomy and adenoidectomy Hx of heart artery stent Family History: Family History (Last Reviewed 12/10/19 @ 20:01 by Yanira Licea MD) Other No pertinent family history Social History: (Last Reviewed 12/10/19 @ 20:01 by Yanira Licea MD) Tobacco: Smokeless tobacco user: chewing tobacco Alcohol: alcohol intake: former Substance Use: substance use type: does not use Physical Exam - Physical Exam General Appearance: Present: alert - dementia, confusion noted, no apparent distress, obese. Absent: lethargic Head Exam: Present: normal inspection, no evidence of injury Eye Exam: PERRL: bilateral Ears, Nose, Throat: Present: normal ENT inspection Neck: Present: normal inspection Respiratory: Present: normal breath sounds, lungs clear Cardiovascular/Chest: Present: regular rate, rhythm Gastrointestinal/Abdominal: Present: nontender - slight bruising anterior, nonspecific, various stages of healing, nondistended, soft Back Exam: Present: normal inspection - no bruising noted, no CVA tenderness Skin Exam: Present: normal color, warm/dry Progress - Results and Orders Patient's Lab Results:: I have reviewed the patient's lab results. Results and Orders: Laboratory Tests 12/10/19 12/10/19 12/10/19 20:25 20:25 20:35 WBC 8.0 Hgb 9.8 L Hct 32.4 L Plt Count 174 Sodium 142 Potassium 5.1 H BUN 30 H Creatinine 2.57 H D Est GFR (Non-Af Amer) 25 L D Random Glucose 111 H AST 25 ALT 11 L Urine Color Red Urine Protein 15 H Urine Glucose (UA) Negative Urine Ketones Negative Urine Blood 250 H Urine Nitrate Negative Urine Bilirubin Negative Ur Leukocyte Esterase 75 H Urine RBC >50 H Urine WBC 5-10 H Ur Epithelial Cells 0-5 Urine Bacteria 4+ H Urine Yeast Few - 1+ H Laboratory Tests 12/10/19 20:25 Lactic Acid, Venous 1.2 - Vital Signs Patient's Vital Signs:: I have reviewed the patient's vital signs. Vital Signs: Vital Signs 12/10/19 19:37 Temperature 36.7 C Pulse Rate 82 Respiratory Rate 16 Blood Pressure 121/53 O2 Sat by Pulse Oximetry 98 - EKG EKG #1 EKG read: Interp. by me EKG Comments: A. 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 This is compared to previous from November 27, 2019. - X-Ray X-Ray #1 X-Ray: chest Interpretation: Interp. by me X-ray Comments: Chest x-ray from 1016 is compared to chest x-ray one view from 1003, appears improved, no acute changes. Cardiomegaly is noted. - CT/Ultrasound CT/Ultrasound Narrative: Head CT is reported by radiologist as no acute changes, no acute disease in the brain. - Progress/Reassessment Chief Complaint: Altered Mental Status Progress:: Improved Progress Note-Subjective: 12/10/19 21:55 Patient's blood work shows exacerbation, acute renal injury and UTI. His vitals are completely stable. His chest x-ray actually shows improvement over November 26. His lactic acid is normal. He is given 1 L of fluid here in the emergency department and I have contacted the hospitalist who agrees that for continued care of the acute renal injury as well as the UTI is in the patient's best interest. He will be placed on low maintenance fluids overnight so that his renal function can be retested in the morning. Patient's received blood cultures x2, his Grimaldo catheter is changed to a new catheter and his first dose of antibiotics, Rocephin has been administered. He is transferred to the floor in stable condition. Departure Clinical Impression: Acute kidney failure, UTI (urinary tract infection) - Departure Disposition: Still a patient Condition: Good Referrals: Brendan Tobin DO [Primary Care Provider] -
[2019-12-10] MEDS ORDERED: NORMAL SALINE 1,000 ML IV ONE ×2 (20:17→22:22)
[2019-12-10] MEDS ORDERED: cefTRIAXone SODIUM 1,000 MG/100 ML BAG IV ONE (20:18)
[2019-12-10 20:31] LABS: Hematocrit 32.4 % (42.0-52.0); Hemoglobin 9.8 gm/dL (13.5-18.0); Mean Cell Volume 99.1 fl (78-100); Mean Corpuscular Hgb Conc 30.2 g/dl (32-36); Mean Platelet Volume 11.2 fl (8-11.3); Neutrophil # 5.9 K/mm3 (1.3-6.0); Neutrophil % 74.1 % (42-75.0); Platelet Count 174 K/mm3 (150-450); Red Blood Count 3.27 M/mm3 (4.7-6.0); Red Cell Distribution Width 17.7 % (11.5-14.0)
[2019-12-10 20:46] LABS: Anion Gap 12.5 mmol/L (6.8-13.8); BUN/Creatinine Ratio 11.7 (9.0-21.6); Bilirubin, Total 0.6 mg/dL (0.0-1.1); Ca. Corrected For Albumin 10.3 mg/dL (8.4-10.2); Calcium * 9.8 mg/dL (7.9-10.9); Carbon Dioxide 31.6 mmol/L (24-32.6); Potassium 5.1 mmol/L (3.4-4.6); Total Protein 7.6 gm/dL (6.2-8.2)
[2019-12-10 20:59] LABS: Urine Bilirubin Negative (NEGATIVE); Urine Blood 250 /ul (NEGATIVE); Urine Ketone Negative (NEGATIVE); Urine Nitrite Negative (NEGATIVE); Urine Protein 15 mg/dL (NEGATIVE); Urine Urobilinogen Normal (NORMAL)
[2019-12-10 21:12] LABS: Urine Color Red
[2019-12-10 21:13] LABS: Urine Appearance Cloudy (CLEAR)
[2019-12-10 21:14] LABS: Urine Bacteria 4+; Urine RBC >50 /hpf (0-5); Urine Yeast Few - 1+
[2019-12-11 10:08] LABS: Hematocrit 28.6 % (42.0-52.0); Hemoglobin 8.6 gm/dL (13.5-18.0); Mean Cell Volume 97.9 fl (78-100); Mean Corpuscular Hemoglobin 29.5 pg (27-31); Mean Corpuscular Hgb Conc 30.1 g/dl (32-36); Mean Platelet Volume 11.5 fl (8-11.3); Neutrophil # 3.2 K/mm3 (1.3-6.0); Neutrophil % 59.5 % (42-75.0); Platelet Count 144 K/mm3 (150-450); Red Blood Count 2.92 M/mm3 (4.7-6.0); Red Cell Distribution Width 17.4 % (11.5-14.0); White Blood Count 5.4 K/mm3 (4.0-10.5)
[2019-12-11 10:26] LABS: Albumin * 2.4 gm/dl (3.4-5.0); Anion Gap 10.9 mmol/L (6.8-13.8); BUN/Creatinine Ratio 14.3 (9.0-21.6); Bilirubin, Total 0.5 mg/dL (0.0-1.1); Carbon Dioxide 30.3 mmol/L (24-32.6); Potassium 4.2 mmol/L (3.4-4.6); Total Protein 6.4 gm/dL (6.2-8.2)
[2019-12-11] MEDS: 0.5 NORMAL SALINE 1,000 ML IV PRN (16:09)
[2019-12-11] MEDS ORDERED: ACETAMINOPHEN 325 MG TABLET PO PRN (21:20)
[2019-12-11] MEDS ORDERED: MECLIZINE HCL 25 MG TABLET PO PRN (21:20)
[2019-12-11] MEDS ORDERED: ALBUTEROL SULFATE/IPRATROPIUM 3 ML NEBU IH SCH (21:30)
[2019-12-11] MEDS ORDERED: BUDESONIDE 0.25 MG/2 ML VIAL.NEB IH SCH (21:30)
--- NOTE | 2019-12-11 21:48 | HP ---
Chief Complaint - Chief Complaint Date of Service: 12/11/19 Time of Service: 09:00 Chief Complaint: Confusion, falls History of Present Illness: Camron is an 84 yo male with 3 falls in the last 12 hours and confusion. He was recently treated for pneumonia and UTI, but has completed his antibiotics. He resides at [facility]. They report they have been pushing fluids as much as possible but he has poor intake and little interest. He was sent from the [facility] to [facility] ER. His creatinine is elevated showing acute on CKD III and dehydration. He was given a liter of NS in the ER. Camron opens his eyes and makes eye contact but does not speak to me. History is obtained from [facility] and ER records. Medical History (Last Reviewed 12/10/19 @ 23:48 by Juliet Maxwell RN) Allergies Anemia Atrial fibrillation BPH (benign prostatic hyperplasia) CHF (congestive heart failure) Diabetes mellitus, type 2 Hyperlipidemia Hypertension Neuropathy Surgical History: Surgical History (Last Reviewed 12/10/19 @ 23:48 by Juliet Maxwell RN) H/O aortic valve replacement History of bilateral knee replacement History of tonsillectomy and adenoidectomy Hx of heart artery stent Family History: Family History (Last Reviewed 12/10/19 @ 23:48 by Juliet Maxwell RN) Other No pertinent family history Social History: (Last Reviewed 12/10/19 @ 23:48 by Juliet Maxwell RN) Tobacco: Smokeless tobacco user: chewing tobacco Alcohol: alcohol intake: former Substance Use: substance use type: does not use Review Of Systems (GEN) - Review of Systems Additional Comments: Unable with patient condition Immunizations: IMMUNIZATION HX Immunizations Up to Date No History of Influenza Vaccine More Information Required Hx Pneumococcal Vaccination More Information Required Allergies/Adverse Reactions: Allergies Allergy/AdvReac Type Severity Reaction Status Date / Time Influenza Virus Vaccines AdvReac Unknown "Deadly Verified 12/10/19 20:17 Sick" Home Medications: HOME MEDICATIONS Carvedilol [Coreg] 12.5 mg PO BIDAC 03/14/19 [Last Taken Unknown] Cetirizine HCl [Zyrtec] 10 mg PO DAILY 03/14/19 [Last Taken Unknown] Furosemide [Lasix] 40 mg PO HS 03/14/19 [Last Taken Unknown] Gabapentin 300 mg PO TID 03/14/19 [Last Taken Unknown] Lisinopril [Prinivil] 5 mg PO DAILY 03/14/19 [Last Taken Unknown] Meclizine HCl 25 mg PO TID PRN 03/14/19 [Last Taken Unknown] Montelukast Sodium [Singulair] 10 mg PO HS 03/14/19 [Last Taken Unknown] Tamsulosin HCl 0.4 mg PO HS 03/14/19 [Last Taken Unknown] Albuterol Sulfate [Proair Respiclick] 2 puff INHALATION Q6H PRN 06/02/19 [Last Taken Unknown] Arformoterol Tartrate [Brovana] 15 mcg INHALATION BID 06/02/19 [Last Taken Unknown] Budesonide [Pulmicort Respules] 2 ml INHALATION BID 06/02/19 [Last Taken Unknown] Insulin Glargine,Hum.rec.anlog [Lantus Solostar] 20 unit SQ DAILY 06/02/19 [Last Taken Unknown] Ipratropium/Albuterol Sulfate [Iprat-Albut 0.5-3(2.5) mg/3 ml] 3 ml INHALATION Q6H 06/02/19 [Last Taken Unknown] Polyethylene Glycol 3350 [Miralax] 17 gm PO DAILY 06/02/19 [Last Taken Unknown] Sennosides [Senna] 8.6 mg PO BID 06/02/19 [Last Taken Unknown] Sennosides/Docusate Sodium [Senna-Docusate Sodium Tablet] 1 ea PO BID 06/02/19 [Last Taken Unknown] Sucralfate [Carafate] 1 g PO QID #60 tab 06/05/19 [Last Taken Unknown] Potassium Chloride [K-Dur] 20 meq PO DAILY #30 tab 06/09/19 [Last Taken Unknown] Acetaminophen [Tylenol] 650 mg PO Q4H PRN 12/10/19 [Last Taken Unknown] Calcium Carbonate/Vitamin D3 [Calcium 600-Vit D3 400 Tablet] 1 ea PO BID 12/10/19 [Last Taken Unknown] Furosemide [Lasix] 80 mg PO DAILY 12/10/19 [Last Taken Unknown] Insulin Glargine,Hum.rec.anlog [Lantus Solostar] 15 unit SQ HS 12/10/19 [Last Taken Unknown] Omeprazole 40 mg PO DAILY 12/10/19 [Last Taken Unknown] Oxybutynin Chloride [Ditropan] 5 mg PO TID 12/10/19 [Last Taken Unknown] Simvastatin 40 mg PO HS 12/10/19 [Last Taken Unknown] traMADol HCL [Tramadol HCl] 50 mg PO BID 12/10/19 [Last Taken Unknown] Exam - Exam Vital Signs: Vital Signs - Last Taken Temp 36.6 C 12/11/19 18:42 Pulse 83 12/11/19 18:42 Resp 12 12/11/19 18:42 BP 122/41 12/11/19 18:42 Pulse Ox 100 12/11/19 18:42 Constitutional: Present: Lethargic, Somnolent Eye Exam: bilateral eye: normal inspection Cardiovascular/Chest: Present: irregularly irregular Peripheral Pulses: radial (R): 2+, radial (L): 2+ Abdomen: Present: Normal bowel sounds, soft, nontender, nondistended Skin Exam: Present: normal color, warm/dry, no cyanosis Neurologic: Present: other - somnolent and not participating in history or exam Diagnostic Studies: Abnormal Lab Results 12/11/19 12/11/19 Range/Units 09:55 09:55 RBC 2.92 L (4.7-6.0) M/mm3 Hgb 8.6 L (13.5-18.0) gm/dL Hct 28.6 L (42.0-52.0) % MCHC 30.1 L (32-36) g/dl RDW 17.4 H (11.5-14.0) % Plt Count 144 L (150-450) K/mm3 MPV 11.5 H (8-11.3) fl Monocytes % 13.5 H (0.0-9) % Eosinophils % 3.5 H (0.0-3.0) % Lymphocytes # 1.21 L (1.5-3.5) k/mm3 Sodium 145 H (132-142) mmol/L Plasma Sodium 144 H (130-142) mmol/L Chloride 108 H (97-106) mmol/L BUN 32 H (6-23) mg/dL Creatinine 2.23 H (0.4-1.4) mg/dL Est GFR (Non-Af Amer) 30 L (60-130) mL/min Random Glucose 58 L D (70-110) mg/dL ALT 8 L (19-67) U/L Albumin 2.4 L (3.4-5.0) gm/dl Microbiology 12/10/19 20:35 Urine Culture - Preliminary Urine,Catheterized No Growth Laboratory Results WBC 5.4 K/mm3 (4.0-10.5) D 12/11/19 09:55 RBC 2.92 M/mm3 (4.7-6.0) L 12/11/19 09:55 Hgb 8.6 gm/dL (13.5-18.0) L 12/11/19 09:55 Hct 28.6 % (42.0-52.0) L 12/11/19 09:55 MCV 97.9 fl (78-100) 12/11/19 09:55 MCH 29.5 pg (27-31) 12/11/19 09:55 MCHC 30.1 g/dl (32-36) L 12/11/19 09:55 RDW 17.4 % (11.5-14.0) H 12/11/19 09:55 Plt Count 144 K/mm3 (150-450) L 12/11/19 09:55 MPV 11.5 fl (8-11.3) H 12/11/19 09:55 Immature Gran % (Auto) 0.40 % (0.001-0.429) 12/11/19 09:55 Immature Gran # (Auto) 0.02 K/mm3 (0.000-0.0310) 12/11/19 09:55 Neutrophils % 59.5 % (42-75.0) 12/11/19 09:55 Lymphocytes % 22.4 % (20-51) 12/11/19 09:55 Monocytes % 13.5 % (0.0-9) H 12/11/19 09:55 Eosinophils % 3.5 % (0.0-3.0) H 12/11/19 09:55 Basophils % 0.7 % (0.0-1.0) 12/11/19 09:55 Nucleated RBC % 0.0 k/mm3 (0-1) 12/11/19 09:55 Neutrophils # 3.2 K/mm3 (1.3-6.0) 12/11/19 09:55 Lymphocytes # 1.21 k/mm3 (1.5-3.5) L 12/11/19 09:55 Monocytes # 0.7 k/mm3 (0.0-1.0) 12/11/19 09:55 Eosinophils # 0.2 k/mm3 (0.0-0.7) 12/11/19 09:55 Absolute Basophils 0.0 k/mm3 (0.0-0.1) 12/11/19 09:55 Sodium 145 mmol/L (132-142) H 12/11/19 09:55 Plasma Sodium 144 mmol/L (130-142) H 12/11/19 09:55 Potassium 4.2 mmol/L (3.4-4.6) 12/11/19 09:55 Chloride 108 mmol/L (97-106) H 12/11/19 09:55 Carbon Dioxide 30.3 mmol/L (24-32.6) 12/11/19 09:55 Anion Gap 10.9 mmol/L (6.8-13.8) 12/11/19 09:55 BUN 32 mg/dL (6-23) H 12/11/19 09:55 Creatinine 2.23 mg/dL (0.4-1.4) H 12/11/19 09:55 Est GFR (Non-Af Amer) 30 mL/min (60-130) L 12/11/19 09:55 BUN/Creatinine Ratio 14.3 (9.0-21.6) 12/11/19 09:55 Random Glucose 58 mg/dL (70-110) L D 12/11/19 09:55 Lactic Acid, Venous 1.2 mmol/L (0.4-2.0) 12/10/19 20:25 Calcium 9.0 mg/dL (7.9-10.9) 12/11/19 09:55 Calcium Adj for Albumin 10.0 mg/dL (8.4-10.2) 12/11/19 09:55 Total Bilirubin 0.5 mg/dL (0.0-1.1) 12/11/19 09:55 AST 24 U/L (0-48) 12/11/19 09:55 ALT 8 U/L (19-67) L 12/11/19 09:55 Alkaline Phosphatase 72 U/L (50-170) 12/11/19 09:55 Total Protein 6.4 gm/dL (6.2-8.2) 12/11/19 09:55 Albumin 2.4 gm/dl (3.4-5.0) L 12/11/19 09:55 Urine Color Red 12/10/19:35 Urine Appearance Cloudy (CLEAR) 12/10/19:35 Urine pH 5.0 pH (5.0-7.0) 12/10/19 20:35 Ur Specific [place] 1.020 SP.GR. (1.005-1.030) 12/10/19:35 Urine Protein 15 mg/dL (NEGATIVE) H 12/10/19:35 Urine Glucose (UA) Negative mg/dL (NEGATIVE) 12/10/19:35 Urine Ketones Negative mg/dL (NEGATIVE) 12/10/19:35 Urine Blood 250 /ul (NEGATIVE) H 12/10/19:35 Urine Nitrate Negative (NEGATIVE) 12/10/19:35 Urine Bilirubin Negative mg/dl (NEGATIVE) 12/10/19:35 Prot Sulfosalicylic Acd Cancelled 12/10/19:35 Urine Urobilinogen Normal EU/dl (NORMAL) 12/10/19:35 Ur Leukocyte Esterase 75 /ul (NEGATIVE) H 12/10/19:35 Urine RBC >50 /hpf (0-5) H 12/10/19:35 Urine WBC 5-10 /hpf (0-5) H 12/10/19:35 Ur Epithelial Cells 0-5 /hpf (0-5) 12/10/19:35 Urine Bacteria 4+ (NONE) H 12/10/19:35 Urine Yeast Few - 1+ (NONE) H 12/10/19 20:35 Urine Culture Comments Culture to follow 12/10/19:35 Assessment/Plan - Narrative Narrative: Camron is an 84 yo male with acute on chronic kidney disease stage 3 due to poor oral intake following pneumonia and UTI. He does not appear infectious but his creatinine is elevated beyond his normal. Will continue fluids and hop this improves his condition. He will need >2 midnights as he is not currently participating his oral intake and creatinine is significantly above his normal. Will also have to gently hydrate due to his history of CHF. - Assessment/Plan (1) Acute kidney injury superimposed on chronic kidney disease Problem: Acute (2) Dehydration Problem: Acute (3) Chronic diastolic CHF (congestive heart failure) Problem: Chronic
[2019-12-11] MEDS: ALBUTEROL SULFATE/IPRATROPIUM 3 ML NEBU IH SCH (21:50)
[2019-12-11] MEDS: FORMOTEROL FUMARATE 20 MCG/2 ML VIAL IH SCH (21:51)
[2019-12-11] MEDS: BUDESONIDE 0.25 MG/2 ML VIAL.NEB IH SCH (21:53)
[2019-12-11] MEDS: SENNOSIDES 8.6 MG TABLET PO SCH (22:44)
[2019-12-11] MEDS: GABAPENTIN 300 MG CAPSULE PO SCH (22:44)
[2019-12-11] MEDS: CARVEDILOL 12.5 MG TABLET PO SCH (22:44)
[2019-12-12] MEDS: ALBUTEROL SULFATE/IPRATROPIUM 3 ML NEBU IH SCH ×4 (00:15→18:19)
[2019-12-12] MEDS: 0.5 NORMAL SALINE 1,000 ML IV PRN ×2 (04:19→17:14)
[2019-12-12 06:27] LABS: Hematocrit 26.6 % (42.0-52.0); Hemoglobin 8.2 gm/dL (13.5-18.0); Mean Cell Volume 98.9 fl (78-100); Mean Corpuscular Hemoglobin 30.5 pg (27-31); Mean Corpuscular Hgb Conc 30.8 g/dl (32-36); Mean Platelet Volume 11.6 fl (8-11.3); Neutrophil # 2.5 K/mm3 (1.3-6.0); Neutrophil % 55.1 % (42-75.0); Platelet Count 132 K/mm3 (150-450); Red Blood Count 2.69 M/mm3 (4.7-6.0); Red Cell Distribution Width 17.5 % (11.5-14.0); White Blood Count 4.5 K/mm3 (4.0-10.5)
[2019-12-12 06:41] LABS: Albumin * 2.2 gm/dl (3.4-5.0); Anion Gap 11.3 mmol/L (6.8-13.8); BUN/Creatinine Ratio 15.1 (9.0-21.6); Bilirubin, Total 0.5 mg/dL (0.0-1.1); Ca. Corrected For Albumin 9.5 mg/dL (8.4-10.2); Calcium * 8.4 mg/dL (7.9-10.9); Carbon Dioxide 27.9 mmol/L (24-32.6); Potassium 4.2 mmol/L (3.4-4.6); Total Protein 6.1 gm/dL (6.2-8.2)
[2019-12-12] MEDS: FORMOTEROL FUMARATE 20 MCG/2 ML VIAL IH SCH ×2 (07:41→18:19)
[2019-12-12] MEDS: BUDESONIDE 0.25 MG/2 ML VIAL.NEB IH SCH ×2 (07:43→18:20)
[2019-12-12] MEDS: POLYETHYLENE GLYCOL 3350 17 GM PACKET PO SCH (08:52)
[2019-12-12] MEDS: CARVEDILOL 12.5 MG TABLET PO SCH ×2 (08:54→17:19)
[2019-12-12] MEDS: SUCRALFATE 1 G TABLET PO SCH ×4 (08:54→22:43)
[2019-12-12] MEDS: GABAPENTIN 300 MG CAPSULE PO SCH ×3 (08:54→17:19)
[2019-12-12] MEDS: CALCIUM CARBONATE/VITAMIN D3 1 TAB TABLET PO SCH ×2 (08:54→22:43)
[2019-12-12] MEDS: SENNOSIDES/DOCUSATE SODIUM 1 TAB TABLET PO SCH ×2 (08:54→22:41)
[2019-12-12] MEDS: POTASSIUM CHLORIDE 20 MEQ TABLET.SA PO SCH (08:55)
[2019-12-12] MEDS: LISINOPRIL 5 MG TABLET PO SCH (08:55)
[2019-12-12] MEDS: OXYBUTYNIN CHLORIDE 5 MG TABLET PO SCH ×3 (08:55→17:19)
[2019-12-12] MEDS: LORATADINE 10 MG TABLET PO SCH (08:55)
[2019-12-12] MEDS: SENNOSIDES 8.6 MG TABLET PO SCH ×2 (08:56→22:42)
[2019-12-12] MEDS: traMADol HCL 50 MG TABLET PO SCH ×2 (08:58→22:41)
[2019-12-12] MEDS ORDERED: POLYETHYLENE GLYCOL 3350 119 GM BTL PO SCH (09:00)
[2019-12-12] MEDS: INSULIN GLARGINE,HUM.REC.ANLOG 100 UNITS/ML VIAL SC SCH (09:02)
[2019-12-12] MEDS ORDERED: SIMVASTATIN 40 MG TABLET PO SCH (21:00)
[2019-12-12] MEDS ORDERED: MONTELUKAST SODIUM 10 MG TABLET PO SCH (21:00)
[2019-12-12] MEDS ORDERED: TAMSULOSIN HCL 0.4 MG CAP.SR.24H PO SCH (21:00)
[2019-12-12] MEDS ORDERED: INSULIN GLARGINE,HUM.REC.ANLOG 100 UNITS/ML VIAL SC SCH (21:00)
--- NOTE | 2019-12-12 21:45 | PN ---
Subjective - Date and Time Seen Date: 12/12/19 Time: 10:15 Subjective Narrative: Camron is much improved today. He reports feeling back to his usual. He does not recall much from yesterday. Today his creatinine is 1.99 which is at his baseline. No fever, chills, nausea or vomiting. Objective - Vitals Vitals: Last Vital Signs Temp 36.7 C 12/12/19 17:44 Pulse 73 12/12/19 18:29 Resp 20 12/12/19 18:29 BP 127/44 12/12/19 17:44 Pulse Ox 100 12/12/19 18:19 - Abnormal Lab Findings Abnormal Lab Findings: Abnormal Lab Results 12/12/19 12/12/19 Range/Units 06:15 06:15 RBC 2.69 L (4.7-6.0) M/mm3 Hgb 8.2 L (13.5-18.0) gm/dL Hct 26.6 L (42.0-52.0) % MCHC 30.8 L (32-36) g/dl RDW 17.5 H (11.5-14.0) % Plt Count 132 L (150-450) K/mm3 MPV 11.6 H (8-11.3) fl Immature Gran % (Auto) 0.70 H (0.001-0.429) % Monocytes % 13.7 H (0.0-9) % Eosinophils % 4.4 H (0.0-3.0) % Lymphocytes # 1.14 L (1.5-3.5) k/mm3 Sodium 143 H (132-142) mmol/L Plasma Sodium 143 H (130-142) mmol/L Chloride 108 H (97-106) mmol/L BUN 30 H (6-23) mg/dL Creatinine 1.99 H (0.4-1.4) mg/dL Est GFR (Non-Af Amer) 34 L (60-130) mL/min ALT 7 L (19-67) U/L Total Protein 6.1 L (6.2-8.2) gm/dL Albumin 2.2 L (3.4-5.0) gm/dl - Exam Constitutional: Present: Alert, Oriented x3, Cooperative ENT Exam: Present: hearing grossly normal Respiratory: Present: lungs clear, normal breath sounds Cardiovascular/Chest: Present: regular rate, rhythm, no murmur Abdomen: Present: Normal bowel sounds, soft, nontender, nondistended Appearance: Present: appropriate appearance, appropriate insight Eye contact: Present: cooperative, good eye contact, normal speech Cauti Physician Documentation - Urinary Catheter Management Urethral (Grimaldo) Date of Insertion: 12/10/19 Time of Insertion: 22:04 Assessment/Plan Plan Narrative: He is much improved today after fluid. His creatinine is back to his baseline and clinically he appears to be there as well. No additional changes made today. Continue to encourage hydration and fluids. - Problems/Diagnosis (1) Acute kidney injury superimposed on chronic kidney disease Problem: Resolved (2) Dehydration Problem: Resolved (3) Chronic diastolic CHF (congestive heart failure) Problem: Chronic
[2019-12-13] MEDS: ALBUTEROL SULFATE/IPRATROPIUM 3 ML NEBU IH SCH ×2 (00:33→06:20)
[2019-12-13] MEDS: BUDESONIDE 0.25 MG/2 ML VIAL.NEB IH SCH (06:20)
[2019-12-13] MEDS: FORMOTEROL FUMARATE 20 MCG/2 ML VIAL IH SCH (06:20)
[2019-12-13] MEDS: SUCRALFATE 1 G TABLET PO SCH ×2 (07:31→12:01)
[2019-12-13] MEDS: CARVEDILOL 12.5 MG TABLET PO SCH (07:31)
[2019-12-13] MEDS ORDERED: FLUCONAZOLE 150 MG TABLET PO ONE (08:56)
[2019-12-13] MEDS: SENNOSIDES 8.6 MG TABLET PO SCH (09:04)
[2019-12-13] MEDS: LISINOPRIL 5 MG TABLET PO SCH (09:04)
[2019-12-13] MEDS: SENNOSIDES/DOCUSATE SODIUM 1 TAB TABLET PO SCH (09:04)
[2019-12-13] MEDS: POLYETHYLENE GLYCOL 3350 17 GM PACKET PO SCH (09:04)
[2019-12-13] MEDS: POTASSIUM CHLORIDE 20 MEQ TABLET.SA PO SCH (09:05)
[2019-12-13] MEDS: GABAPENTIN 300 MG CAPSULE PO SCH ×2 (09:05→12:01)
[2019-12-13] MEDS: OXYBUTYNIN CHLORIDE 5 MG TABLET PO SCH ×2 (09:05→12:01)
[2019-12-13] MEDS: CALCIUM CARBONATE/VITAMIN D3 1 TAB TABLET PO SCH (09:05)
[2019-12-13] MEDS: LORATADINE 10 MG TABLET PO SCH (09:05)
--- NOTE | 2019-12-13 09:06 | DS ---
(1) Acute kidney injury superimposed on chronic kidney disease Problem: Resolved (2) Dehydration Problem: Resolved (3) Chronic diastolic CHF (congestive heart failure) Problem: Chronic Date of Discharge:: 12/13/19 Hospital Course: Camron is an 84 yo male that was admitted due to weakness and altered mental status with evidence of acute on chronic CKD secondary to dehydration. He was treated with IV fluids and improved back to his baseline. There was no evidence of active pneumonia or bacterial UTI, as this was previously treated. He will be discharged back to [facility] today. Procedures Performed: none Results and Findings: Pending Mircobiology Results 12/10/19 21:35 Blood Blood Culture - Preliminary NO GROWTH AFTER 48 HOURS 12/10/19 20:25 Blood Blood Culture - Preliminary NO GROWTH AFTER 48 HOURS Lab Pending Results 12/10/19 20:25: WBC 8.0, RBC 3.27 L, Hgb 9.8 L, Hct 32.4 L, MCV 99.1, MCH 30.0, MCHC 30.2 L, RDW 17.7 H, Plt Count 174, MPV 11.2, Immature Gran % (Auto) 0.50 H, Immature Gran # (Auto) 0.04 H, Neutrophils % 74.1, Lymphocytes % 12.2 L, Monocytes % 11.2 H, Eosinophils % 1.5, Basophils % 0.5, Nucleated RBC % 0.0, Neutrophils # 5.9, Lymphocytes # 0.98 L, Monocytes # 0.9, Eosinophils # 0.1, Absolute Basophils 0.0 12/10/19 20:25: Sodium 142, Plasma Sodium 142, Potassium 5.1 H, Chloride 103, Carbon Dioxide 31.6, Anion Gap 12.5, BUN 30 H, Creatinine 2.57 H D, Est GFR (Non-Af Amer) 25 L D, BUN/Creatinine Ratio 11.7, Random Glucose 111 H, Calcium 9.8, Calcium Adj for Albumin 10.3 H, Total Bilirubin 0.6, AST 25, ALT 11 L, Alkaline Phosphatase 91, Total Protein 7.6, Albumin 3.0 L 12/10/19 20:25: Lactic Acid, Venous 1.2 12/10/19 20:35: Urine Color Red, Urine Appearance Cloudy, Urine pH 5.0, Ur Specific Victor 1.020, Urine Protein 15 H, Urine Glucose (UA) Negative, Urine Ketones Negative, Urine Blood 250 H, Urine Nitrate Negative, Urine Bilirubin Negative, Prot Sulfosalicylic Acd Cancelled, Urine Urobilinogen Normal, Ur Leukocyte Esterase 75 H, Urine RBC >50 H, Urine WBC 5-10 H, Ur Epithelial Cells 0-5, Urine Bacteria 4+ H, Urine Yeast Few - 1+ H, Urine Culture Comments Culture to follow 12/11/19 09:55: WBC 5.4 D, RBC 2.92 L, Hgb 8.6 L, Hct 28.6 L, MCV 97.9, MCH 29.5, MCHC 30.1 L, RDW 17.4 H, Plt Count 144 L, MPV 11.5 H, Immature Gran % (Auto) 0.40, Immature Gran # (Auto) 0.02, Neutrophils % 59.5, Lymphocytes % 22.4, Monocytes % 13.5 H, Eosinophils % 3.5 H, Basophils % 0.7, Nucleated RBC % 0.0, Neutrophils # 3.2, Lymphocytes # 1.21 L, Monocytes # 0.7, Eosinophils # 0.2, Absolute Basophils 0.0 12/11/19 09:55: Sodium 145 H, Plasma Sodium 144 H, Potassium 4.2, Chloride 108 H, Carbon Dioxide 30.3, Anion Gap 10.9, BUN 32 H, Creatinine 2.23 H, Est GFR (Non-Af Amer) 30 L, BUN/Creatinine Ratio 14.3, Random Glucose 58 L D, Calcium 9.0, Calcium Adj for Albumin 10.0, Total Bilirubin 0.5, AST 24, ALT 8 L, Alkaline Phosphatase 72, Total Protein 6.4, Albumin 2.4 L 12/12/19 06:15: WBC 4.5, RBC 2.69 L, Hgb 8.2 L, Hct 26.6 L, MCV 98.9, MCH 30.5, MCHC 30.8 L, RDW 17.5 H, Plt Count 132 L, MPV 11.6 H, Immature Gran % (Auto) 0.70 H, Immature Gran # (Auto) 0.03, Neutrophils % 55.1, Lymphocytes % 25.2, Monocytes % 13.7 H, Eosinophils % 4.4 H, Basophils % 0.9, Nucleated RBC % 0.0, Neutrophils # 2.5, Lymphocytes # 1.14 L, Monocytes # 0.6, Eosinophils # 0.2, Absolute Basophils 0.0 12/12/19 06:15: Sodium 143 H, Plasma Sodium 143 H, Potassium 4.2, Chloride 108 H, Carbon Dioxide 27.9, Anion Gap 11.3, BUN 30 H, Creatinine 1.99 H, Est GFR (Non-Af Amer) 34 L, BUN/Creatinine Ratio 15.1, Random Glucose 71, Calcium 8.4, Calcium Adj for Albumin 9.5, Total Bilirubin 0.5, AST 25, ALT 7 L, Alkaline Phosphatase 75, Total Protein 6.1 L, Albumin 2.2 L Discharge Location: [facility] Disposition: SNF Condition: Fair Discharge Activity: Activity as tolerated Discharge Diet: General/regular food [facility] Therapy: Physical Therapy, Occupation Therapy, Speech Therapy Referrals: Brendan Tobin DO [Primary Care Provider] - (Routine) Problem Oriented Discharge Instructions to Patient/Family: Dehydration, Adult, [id number] Additional Patient Instructions (free text): [facility] SNF- PT/OT/Speech therapy- fax discharge summary, signed orders, and medications and call report. Complete Home Medications List: Complete Home Medication List: Carvedilol [Coreg] 12.5 mg PO BIDAC 03/14/19 Cetirizine HCl [Zyrtec] 10 mg PO DAILY 03/14/19 Furosemide [Lasix] 40 mg PO HS 03/14/19 Gabapentin 300 mg PO TID 03/14/19 Lisinopril [Prinivil] 5 mg PO DAILY 03/14/19 Meclizine HCl 25 mg PO TID PRN 03/14/19 Montelukast Sodium [Singulair] 10 mg PO HS 03/14/19 Tamsulosin HCl 0.4 mg PO HS 03/14/19 Albuterol Sulfate [Proair Respiclick] 2 puff INHALATION Q6H PRN 06/02/19 Arformoterol Tartrate [Brovana] 15 mcg INHALATION BID 06/02/19 Budesonide [Pulmicort Respules] 2 ml INHALATION BID 06/02/19 Insulin Glargine,Hum.rec.anlog [Lantus Solostar] 20 unit SQ DAILY 06/02/19 Ipratropium/Albuterol Sulfate [Iprat-Albut 0.5-3(2.5) mg/3 ml] 3 ml INHALATION Q6H 06/02/19 Polyethylene Glycol 3350 [Miralax] 17 gm PO DAILY 06/02/19 Sennosides [Senna] 8.6 mg PO BID 06/02/19 Sennosides/Docusate Sodium [Senna-Docusate Sodium Tablet] 1 ea PO BID 06/02/19 Sucralfate [Carafate] 1 g PO QID #60 tab 06/05/19 Potassium Chloride [K-Dur] 20 meq PO DAILY #30 tab 06/09/19 Acetaminophen [Tylenol] 650 mg PO Q4H PRN 12/10/19 Calcium Carbonate/Vitamin D3 [Calcium 600-Vit D3 400 Tablet] 1 ea PO BID 12/10/19 Furosemide [Lasix] 80 mg PO DAILY 12/10/19 Insulin Glargine,Hum.rec.anlog [Lantus Solostar] 15 unit SQ HS 12/10/19 Omeprazole 40 mg PO DAILY 12/10/19 Oxybutynin Chloride [Ditropan] 5 mg PO TID 12/10/19 Simvastatin 40 mg PO HS 12/10/19 traMADol HCL [Tramadol HCl] 50 mg PO BID 12/10/19
[2019-12-13] MEDS: traMADol HCL 50 MG TABLET PO SCH (09:09)
[2019-12-13] MEDS: INSULIN GLARGINE,HUM.REC.ANLOG 100 UNITS/ML VIAL SC SCH (09:22)
[2019-12-13 13:07] VITALS: BP 121/52
== END 2019-12-13 13:45 | DRG 683 ==
LOC: MS 19:36 → ER 19:36 → INTOOBSV 22:10 → OBSVTOIN 22:10 → MS 22:55
PROVIDERS: ADMIT Family Medicine; ATTEND Family Medicine
DX: F03.90 Unspecified dementia, unspecified severity, without behavioral disturbance, psychotic disturbance, mood disturbance, and anxiety; W19.XXXA Unspecified fall, initial encounter; Z79.01 Long term (current) use of anticoagulants; I13.0 Hypertensive heart and chronic kidney disease with heart failure and stage 1 through stage 4 chronic kidney disease, or unspecified chronic kidney disease; E11.22 Type 2 diabetes mellitus with diabetic chronic kidney disease; F17.220 Nicotine dependence, chewing tobacco, uncomplicated; E86.0 Dehydration; N39.0 Urinary tract infection, site not specified; I50.32 Chronic diastolic (congestive) heart failure; Z11.59 Encounter for screening for other viral diseases; N18.30 Chronic kidney disease, stage 3 unspecified; N17.9 Acute kidney failure, unspecified; I48.91 Unspecified atrial fibrillation